=== PATIENT | male | born 1965 | race Caucasian/White ===

== ENCOUNTER → 2016-07-20 | Outpatient (CLI) | payer BC ==
[~2016-07-20] MED LIST: CPR500T PO; FLUD0.1T7 PO; HYDR10TA13 PO; LEVO200T30; LVT.15T PO; ONDA-42 SL; PRM25T PO; SYNTHROID PO; [UNRECOGNIZED DRUG - CODE] PO
== END ==
LOC: LAB 12:05
PROVIDERS: ATTEND Internal Medicine
DX: R19.7 Diarrhea, unspecified (principal)
CPT/HCPCS: 87324; 87449

== ENCOUNTER → 2016-11-17 | Outpatient (CLI) | payer BC ==
[2016-11-17 09:51] LABS: ALANINE AMINOTRANSFERASE 21 U/L (0-55); ALBUMIN 4.1 GM/DL (3.2-4.5); ANION GAP 9 MMOL/L (5-14); ASPARTATE AMINO TRANSFERASE 18 U/L (5-34); BILIRUBIN,TOTAL 0.7 MG/DL (0.1-1.0); BLOOD UREA NITROGEN 14 MG/DL (7-18); BUN/CREATININE RATIO 14; CARBON DIOXIDE 25 MMOL/L (21-32); CHLORIDE 103 MMOL/L (98-107); CHOLESTEROL 202 MG/DL (< 200); CREATININE SERUM 0.98 MG/DL (0.60-1.30); DIRECT LDL 124 MG/DL (1-129); GFR ESTIMATED > 60; GLUCOSE 100 MG/DL (70-105); SODIUM 137 MMOL/L (135-145); TOTAL PROTEIN 6.4 GM/DL (6.4-8.2); TRIGLYCERIDES 129 MG/DL (<150); VLDL CHOLESTEROL 26 MG/DL (5-40)
[2016-11-17 10:12] LABS: THYROID STIMULATING HORMONE 2.74 UIU/ML (0.35-4.94)
== END ==
LOC: LAB 09:09
PROVIDERS: ATTEND Internal Medicine
DX: E27.1 Primary adrenocortical insufficiency (principal); E03.9 Hypothyroidism, unspecified; Z00.8 Encounter for other general examination
CPT/HCPCS: 36415; 80053; 80061; 82024; 84153; 84439; 84443

== ENCOUNTER 2017-05-07 05:33 | Outpatient (CLI) | payer BC ==
[~2017-05-07] VITALS: Ht 182.9 cm; Wt 90.7 kg
[2017-05-07] MEDS ORDERED: HYDR10TA13 PO ×2 (10:01)
[2017-05-07] MEDS ORDERED: LEVO125T6 PO (10:01)
[2017-05-07] MEDS ORDERED: FLDR.1T PO (10:01)
[2017-05-07] MEDS ORDERED: OMEP20CA12 PO (10:01)
== END 2017-05-07 10:02 ==
LOC: PREOP 05:33
PROVIDERS: ATTEND Internal Medicine
DX: Z01.818 Encounter for other preprocedural examination (principal); Z12.11 Encounter for screening for malignant neoplasm of colon; Z86.010 Personal history of colon polyps

== ENCOUNTER 2017-05-14 06:54 | Day surgery (SDC) | payer BC ==
--- NOTE | 2017-05-05 06:13 | HISTORY AND PHYSICAL ---
DATE OF SERVICE: COLONOSCOPY HISTORY AND PHYSICAL HISTORY OF PRESENT ILLNESS: The patient is a 52-year-old white male who presented to my office for new patient examination on 05/03/2017. He reports past history of adenomatous colon polyps and is overdue for colonoscopy. He states that otherwise he feels well. He reports his weight has been stable. He denies abdominal pain. He denies melena or bright red blood per rectum. He is not aware of any family history for colon cancer, but several other first degree relatives have had history of colon polyps. He is a previous patient of Dr. Hensley in [place], but current insurance will not cover him there. 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 He has not required hospitalization for Humberto's symptoms since. He has been taking hydrocortisone rather high dose at 40 mg in the morning. He had not been good about attempting an afternoon dose, so he has been lumping it all in the morning. In addition to this, he takes 0.1 mg of fludrocortisone daily. He has not had an eye examination for glaucoma, etc. in several years. He reports he had bone density study done 4 or 5 years ago, which was normal. He also has a history of Rex's thyroiditis, on thyroid replacement. His other medications include an enteric-coated aspirin daily for colon cancer prevention, a probiotic daily and omeprazole 20 mg daily for reflux symptoms. He apparently had peptic ulcer about 5 years ago as well as erosive esophagitis without evidence for Guerrero's change when he last underwent EGD evaluation. He had a displaced tibiofibular fracture of the left leg. 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 He required a second toe ORIF with bone grafting and a bone stimulator. He still has the implanted bone stimulator and would like to have it removed. PHYSICAL EXAMINATION: GENERAL: Reveals a marinelli white male who denies sun exposure at this time of the year and no tanning bed use. VITAL SIGNS: His blood pressure was 138/70 with a heart rate of 72 and regular. Weight is 201 pounds. He is 5 feet 11-1/2 inches. HEENT: Unremarkable. He has Mallampati class 2 oropharyngeal configuration. NECK: Reveals no JVD, adenopathy or bruits. CHEST: Clear. CARDIOVASCULAR: Reveals regular rate and rhythm without murmur, S3 or S4. ABDOMEN: Soft, supple without mass, organomegaly or tenderness. Bowel sounds are positive. No bruits are noted. EXTREMITIES: Reveal no cyanosis, clubbing or edema. There is some induration at the site of his bone stimulator without overlying ulceration, erythema or tenderness to palpation. Blood studies were reviewed from November in his electronic medical record. His ACTH level at that time was high at a level of 400. The remainder of his chemistry panel, lipid panel and CBC were unremarkable. His total cholesterol was 202 with an LDL of 124, an HDL of 62 and a VLDL of 26. His PSA was 0.24 and TSH was 2.74 with a free T4 of 1.2. Blood sugar was 100 and his chemistry panel was normal. FAMILY HISTORY: Father is living in his 80s with history of pancreatitis. He had late-onset coronary artery bypass grafting in his late 70s or early 80s and required a pacemaker placement. Mother is living in her 80s and has history of Guillain-Norton syndrome. There are several aunts with Rex's thyroiditis. He is not aware of any family history for diabetes. He has one living brother who is 2 years older, alive in good health with no reported health problems. ASSESSMENT AND PLAN: 1. History of colonic adenomas. The patient is being set up for colonoscopy in mid May. Prep instructions of the Suprep kit were given and questions were answered. Rectal exam was deferred at the time of colonoscopy. 2. Pitkin's disease. Strongly advised that he split his cortisone dose, for which we should be able to decrease his total level slowly. We will start off with 25 mg in the morning and 12.5 mg in the afternoon between 2 and 3. We strongly advised to set his phone alarm as a reminder. We will continue his other medications and they were all called in to [facility]. 3. History of erosive esophagitis and peptic ulcer disease, on baby aspirin, more for colon cancer prevention considering his history of polyps. Will need to continue indefinite PPI therapy. He is referred to Dr. Salinas for eye pressure evaluation and general eye evaluation considering his need for steroids/hydrocortisone. We will obtain records from Dr. Hensley reviewing his bone density studies. 4. 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 We will refer to [facility] for removal. We will have him follow up with me for routine evaluation in six months. Job ID: [id number] DocumentID: [id number] Dictated Date: 05/03/2017 19:31:41 Wind Development Director Date: 05/03/2017 20:27:58 Dictated By: TONG CHERY MD
[~2017-05-14] VITALS: Ht 182.9 cm; Wt 90.7 kg
[~2017-05-14 06:54] MED LIST changes: +FLDR.1T PO; +LEVO125T6 PO; +OMEP20CA12 PO
--- OUTSIDE RECORDS SUMMARY | 2017-05-14 06:58 | XMS REPORT | Continuity of Care Document ---
Author Author [facility] Organization [facility] Address Unknown Phone Unavailable Allergies Active Description Code Type Severity Reaction Onset Reported/Identified Relationship to Patient Clinical Status Yes No Known Drug Allergies [id number] Drug Allergy Unknown N/A 08/27/2009 Yes Penicillins [id number] Drug Allergy Unknown N/A 04/27/2015 Yes sulfamethoxazole [id number] Drug Allergy Unknown N/A 04/27/2015 Yes trimethoprim [id number] Drug Allergy Unknown N/A 04/27/2015 Medications There is no data. Problems Date Dx Coded Attending Type Code Diagnosis Diagnosed By 03/01/2014 LAYLA TOBIAS MD Ot V25.09 07/03/2014 DALJIT PARNELL Ot V72.63 07/03/2014 LAYLA TOBIAS MD Ot V25.09 07/03/2014 JORGE MONROE DO Ot 558.9 07/03/2014 JORGE MNOROE DO Ot 789.00 08/11/2016 HANSA CASTILLO MD Ot R19.7 DIARRHEA, UNSPECIFIED 12/05/2016 HANSA CASTILLO MD Ot E03.9 HYPOTHYROIDISM, UNSPECIFIED 12/05/2016 HANSA CASTILLO MD Ot E27.1 PRIMARY ADRENOCORTICAL INSUFFICIENCY 12/05/2016 HANSA CASTILLO MD Ot Z00.8 ENCOUNTER FOR OTHER GENERAL EXAMINATION 05/07/2017 HANSA CASTILLO MD Ot R19.7 DIARRHEA, UNSPECIFIED 05/07/2017 HANSA CASTILLO MD Ot E03.9 HYPOTHYROIDISM, UNSPECIFIED 05/07/2017 HANSA CASTILLO MD Ot E27.1 PRIMARY ADRENOCORTICAL INSUFFICIENCY 05/07/2017 HANSA CASTILLO MD Ot Z00.8 ENCOUNTER FOR OTHER GENERAL EXAMINATION Procedures There is no data. Results Test Result Range [id number] - 07/20/16 11:42 RESULTS NEGATIVE FOR ANTIGEN AND TOXIN A/B [facility] Comprehensive metabolic panel - 11/17/16 09:25 Serum or plasma sodium measurement (moles/volume) 137 mmol/L 135-145 Serum or plasma potassium measurement (moles/volume) 4.0 mmol/L 3.6-5.0 Serum or plasma chloride measurement (moles/volume) 103 mmol/L 98-107 Carbon dioxide 25 mmol/L 21-32 Serum or plasma anion gap determination (moles/volume) 9 mmol/L 5-14 Serum or plasma urea nitrogen measurement (mass/volume) 14 mg/dL 7-18 Serum or plasma creatinine measurement (mass/volume) 0.98 mg/dL 0.60-1.30 Serum or plasma urea nitrogen/creatinine mass ratio 14 NRG Serum or plasma creatinine measurement with calculation of estimated glomerular filtration rate > [facility] Serum or plasma glucose measurement (mass/volume) 100 mg/dL 70-105 Serum or plasma calcium measurement (mass/volume) 9.0 mg/dL 8.5-10.1 Serum or plasma total bilirubin measurement (mass/volume) 0.7 mg/dL 0.1-1.0 Serum or plasma alkaline phosphatase measurement (enzymatic activity/volume) 44 U/L 40-136 Serum or plasma aspartate aminotransferase measurement (enzymatic activity/ volume) 18 U/L 5-34 Serum or plasma alanine aminotransferase measurement (enzymatic activity/volume ) 21 U/L 0-55 Serum or plasma protein measurement (mass/volume) 6.4 g/dL 6.4-8.2 Serum or plasma albumin measurement (mass/volume) 4.1 g/dL 3.2-4.5 Lipid 1996 panel - 11/17/16 09:25 Serum or plasma triglyceride measurement (mass/volume) 129 mg/dL <150 Serum or plasma cholesterol measurement (mass/volume) 202 mg/dL < 200 Serum or plasma cholesterol in HDL measurement (mass/volume) 62 mg/ dL 40-60 Cholesterol in LDL [mass/volume] in serum or plasma by direct assay 124 mg/dL 1-129 Serum or plasma cholesterol in VLDL measurement (mass/volume) 26 mg/ dL 5-40 THYROID STIMULATING HORMONE - 11/17/16 09:25 THYROID STIMULATING HORMONE 2.74 u[iU]/mL 0.35-4.94 Serum or plasma thyroxine (T4) free measurement (mass/volume) - 11/17/16 09:25 Serum or plasma thyroxine (T4) free measurement (mass/volume) 1.20 ng/dL 0.70-1.48 Adrenocorticotropic hormone (ACTH) measurement - 11/17/16 09:25 Adrenocorticotropic hormone (ACTH) measurement 418 pg/mL 5-27 Prostate specific ag [mass/volume] in serum or plasma - 11/17/16 09:25 Prostate specific ag [mass/volume] in serum or plasma 0.24 % 0.00-4.00 Encounters ACCT No. Visit Date/Time Discharge Status Pt. Type Provider Facility Loc./Unit Complaint [id number] 05/07/2017 05:33:00 05/07/2017 10:02:00 DIS Outpatient TONG CHERY MD [facility] PREOP COLONOSCOPY [id number] 11/17/2016 09:09:00 11/17/2016 23:59:59 CLS Outpatient HANSA CASTILLO MD [facility] LAB E27.1,E03.9,V70.0, Z00.8 [id number] 07/20/2016 12:05:00 07/20/2016 23:59:59 CLS Outpatient HANSA CASTILLO MD [facility] LAB DIARRHEA [id number] 04/27/2015 19:57:00 04/27/2015 23:00:00 DIS Emergency MCKENNA DANIEL MD [facility] ER [id number] 07/02/2014 21:48:00 07/03/2014 01:43:00 DIS Emergency JORGE MONROE DO [facility] ER [id number] 02/14/2014 09:09:00 02/14/2014 23:59:59 CLS Outpatient LAYLA TOBIAS MD [facility] LAB [id number] 07/17/2013 16:07:00 07/17/2013 23:59:59 CLS Outpatient DALJIT PARNELL [facility] LAB [id number] 12/15/2012 09:34:00 12/15/2012 23:59:59 CLS Outpatient [id number] 05/14/2017 08:00:00 PEN Preadmit TONG CHERY MD [facility] ENDO SCREENING/HX OF POLYPS
--- OUTSIDE RECORDS SUMMARY | 2017-05-14 06:58 | XMS REPORT | Clinical Summary ---
Author Author [facility] Organization [facility] Address Unknown Phone Unavailable Care Team Providers Care Project Drilling Engineer Name Role Phone Chris Hensley MD PCP Barak Robbins MD Unavailable Araceli Escalante RN Unavailable Unavailable Vani Muniz PA-C Unavailable Isabella Floyd RN Unavailable Unavailable Source Comments Some departments are not documenting in the electronic medical record. If you do not see the information that you expected, contact Release of Information in the Health Information Management department at [phone] for further assistance in locating additional records.[facility] Allergies Active Allergy Reactions Severity Noted Date Comments Sulfamethoxazole-Trimetho SEE COMMENTS 08/10/2013 Pancreatitis prim Penicillins HIVES 08/10/2013 Current Medications Prescription Sig. Disp. Refills Start End Date Status Date hydrocortisone (CORTEF) Take 30 mg by mouth Active 20 mg tablet daily. Takes 1 tab po q am and 0.5 tab po q pm fludrocortisone Take 0.1 mg by mouth Active (FLORINEF) 0.1 mg tablet daily. levothyroxine (SYNTHROID) Take 125 mcg by mouth Active 125 mcg tablet daily. vitamins, multiple cap Take 1 Cap by mouth Active daily. omeprazole DR(+) Take 20 mg by mouth Active (PRILOSEC) 20 mg capsule daily. gabapentin (NEURONTIN) Take 100 mg by mouth Active 100 mg capsule three times daily. 1 CAP. PO TID X 5 DAYS, THEN TAKE 2 CAP PO TID THEREAFTER LORazepam (ATIVAN) 0.5 mg Take 0.5 mg by mouth Active tablet every 8 hours as needed. 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 2013 Social History Tobacco Use Types Packs/Day Years Used Date Never Smoker Smokeless Tobacco: Never Used Alcohol Use Drinks/Week oz/Week Comments Yes 1 Cans of 0.6 beer Sex Assigned at Date Recorded Not on file Last Filed Vital Signs Vital Sign Reading Time Taken Blood Pressure 104/63 07/21/2013 11:00 AM CDT Pulse 87 07/21/2013 11:00 AM CDT Temperature 37.3 C (99.2 F) 07/21/2013 11:00 AM CDT Respiratory Rate - - Oxygen Saturation 97% 07/21/2013 11:00 AM CDT Inhaled Oxygen - - Concentration Weight 87.3 kg (192 lb 7.4 oz) 07/21/2013 11:00 AM CDT Height 182.9 cm (6') 07/21/2013 11:00 AM CDT Body Mass Index 26.1 07/21/2013 11:00 AM CDT Plan of Treatment Health Maintenance Due Date Last Done Comments HEPATITIS C SCREENING 1965 PHYSICAL (COMPREHENSIVE) 01/01/1971 EXAM PERTUSSIS VACCINE 01/01/1975 TETANUS VACCINE 01/01/1981 COLORECTAL CANCER 01/01/2014 SCREENING INFLUENZA VACCINE 11/10/2016 Results Not on filefrom Last 3 Months
[2017-05-14] MEDS ORDERED: 1/2 NS IV SOLUTION 1,000 ML IV STA (07:03)
[2017-05-14] MEDS ORDERED: 1/2 NS IV SOLUTION 1,000 ML IV ONE (07:08)
[2017-05-14 07:15] VITALS: BP 132/84
[2017-05-14] MEDS ORDERED: LIDOCAINE JELLY 2% (XYLOCAINE) 5 ML TUBE MM PRN (07:15)
[2017-05-14] MEDS ORDERED: MIDAZOLAM 2 MG/2 ML (VERSED) VIAL IVP PRN (07:15)
[2017-05-14] MEDS ORDERED: MIDAZOLAM 2 MG/2 ML (VERSED) VIAL ONE ×2 (07:42)
[2017-05-14] MEDS ORDERED: LIDOCAINE JELLY 2% (XYLOCAINE) 5 ML TUBE ONE (07:43)
[2017-05-14] MEDS ORDERED: fentaNYL INJECTION 100 MCG/2 ML AMP ONE (07:43)
--- NOTE | 2017-05-14 07:55 | Pre-Op Note & Conscious Sedat ---
Pre-Operative Progress Note H&P Reviewed The H&P was reviewed, patient examined and no changes noted. Date H&P Reviewed: May 14, 2017 Time H&P Reviewed: 07:45 Conscious Sedation Pre-Proced ASA Class: 2 Airway Mallampati Classification: ([place] appropriate class) I. II. III, IV Lungs Heart ASA score ASA 1: a normal healthy patient ASA 2: a patient with a mild systemic disease (mid diabetes, controlled hypertension, obesity ASA 3: a patient with a severe systemic disease that limits activity (angina , COPD, prior Myocardial infarction) ASA 4: a patient with an incapacitating disease that is a constant threat to life (CHF, renal failure) ASA 5: a moribund patient not expected to survive 24 hrs. (ruptured aneurysm) ASA 6: a declared brain patient whose organs are being harvested. For emergent operations, add the letter E after the classification Grade 2 Sedation Plan: Analgesia, Amnesia, Plan communicated to team members, Discussed options with patient/fam, Discussed risks with patient/fam Note The patient is an appropriate candidate to undergo the planned procedure, sedation, and anesthesia. The patient immediately re-assessed prior to indication. TONG CHERY MD May 14, 2017 07:55
[2017-05-14] MEDS: fentaNYL INJECTION 100 MCG/2 ML AMP IVP PRN ×2 (07:57→08:12)
[2017-05-14 08:50] VITALS: BP 115/79
[2017-05-14 09:05] VITALS: BP 114/88
[2017-05-14 09:08] VITALS: BP 114/88
--- NOTE | 2017-05-14 13:31 | OPERATIVE REPORT ---
DATE OF SERVICE: COLONOSCOPY SUMMARY I am his primary care physician. INDICATION FOR PROCEDURE: Screening colonoscopy, past history of colon polyps. DESCRIPTION OF PROCEDURE: The patient was placed in the left lateral decubitus position. Prior to undergoing colonoscopy, digital rectal evaluation was performed. Anal sphincter tone was normal and the perianal reflex was intact. Prostate is normal in size, anodular and nontender on digital inspection. No abnormalities were noted on digital inspection of anal canal or distal rectal vault. The colonoscope was then inserted into the rectum under direct visualization advanced to the cecum. The cecum was identified by identification of the ileocecal valve and cecal strap. Photographic documentation was obtained. Careful inspection was made as the colonoscope was withdrawn. The quality of prep was good. FINDINGS: There was no evidence for internal or external hemorrhoids. Two diminutive hyperplastic appearing polyps were noted, one in the distal rectum and the other one at the rectosigmoid junction measuring 2 to 3 mm in size. They were biopsied and ablated with no subsequent blood loss. The sigmoid colon, descending colon, splenic flexure, transverse colon, ascending colon, hepatic flexure, ascending colon and cecum were unremarkable. ASSESSMENT: Two diminutive polyps were removed, one from the distal rectum and the other one from the rectosigmoid junction via hot forceps with no subsequent blood loss. This is otherwise normal colonoscopy to the cecum including normal digital evaluation of the prostate. As long as there are no surprises on histopathology report as the patient reports no family history for colon cancer, we will advocate consideration for repeat screening colonoscopy in 10 years. Job ID: [id number] DocumentID: [id number] Dictated Date: 05/14/2017 09:14:19 Applications Support Engineer Date: 05/14/2017 13:31:06 Dictated By: TONG CHERY MD
== END 2017-05-14 09:10 | disposition home or self-care (01) ==
LOC: ENDO 06:54
PROVIDERS: ATTEND Internal Medicine
DX: Z12.11 Encounter for screening for malignant neoplasm of colon (principal); K62.1 Rectal polyp; K63.5 Polyp of colon; D51.0 Vitamin B12 deficiency anemia due to intrinsic factor deficiency; E06.3 Autoimmune thyroiditis; Z79.82 Long term (current) use of aspirin; Z79.899 Other long term (current) drug therapy

== ENCOUNTER → 2017-07-20 | Outpatient (CLI) | payer BC | LOC: LAB 15:40 | PROVIDERS: ATTEND Internal Medicine | DX: R19.7 Diarrhea, unspecified (principal); Z79.2 Long term (current) use of antibiotics | CPT/HCPCS: 87324; 87449 ==

== ENCOUNTER 2019-01-04 05:38 | Outpatient (CLI) | payer BC ==
[~2019-01-04] VITALS: Ht 180.3 cm; Wt 81.8 kg
[~2019-01-04 05:38] MED LIST changes: +HYDR-3641 PO; -OMEP20CA12 PO; +OMEP20CA13 PO
[2019-01-04] MEDS ORDERED: LANS30CA43 PO (10:37)
[2019-01-04] MEDS ORDERED: PSYL660P17 PO (10:37)
[2019-01-04] MEDS ORDERED: L.AC1CAP6 PO (10:42)
[2019-01-04] MEDS ORDERED: ASCO500C17 PO (10:42)
== END 2019-01-04 11:52 | disposition home or self-care (01) ==
LOC: PREOP 05:38
PROVIDERS: ATTEND Internal Medicine
DX: Z01.818 Encounter for other preprocedural examination (principal)

== ENCOUNTER 2019-01-06 07:33 | Day surgery (SDC) | payer BC ==
--- NOTE | 2019-01-03 04:51 | HISTORY AND PHYSICAL ---
DATE OF SERVICE: ESOPHAGOGASTRODUODENOSCOPY HISTORY AND PHYSICAL HISTORY OF PRESENT ILLNESS: The patient is a 54-year-old white male who presented to my office on 01/02/2019 reporting a 2-month history of flareup of his typical ulcer symptoms. He reports epigastric and left upper quadrant pain better after eating temporarily but associated with anorexia. He lost more than 20 pounds of weight since his last office visit in 06/2018. He denied dysphagia, melena or bright red blood per rectum. He has noted more fatigue with decrease in his appetite. He states that he has been under some increased stress, doing a lot of home remodeling, had been drinking more coffee. He denies aspirin, nonsteroidal use or alcohol consumption. He does report a past history of peptic ulcer disease. He underwent EGD evaluation about 6 years ago at which time he reported erosive esophagitis without evidence for Guerrero's and reported a peptic ulcer at that time, although he does not have for stomach or duodenal. He has been taking omeprazole since that time. He was currently taking pantoprazole and omeprazole both in the morning, doing better during the day, but having more evening symptoms. He has some intermittent nausea. 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 He has been on hydrocortisone replacement since and done well. He has had a history of colon polyps in the past, but underwent colonoscopy in 05/2017, had one small adenoma removed with recommendation for 10-year followup as there is no family history for colon cancer. MEDICATIONS ON ADMISSION: Include lansoprazole 30 mg in the morning, omeprazole 20 mg in the morning, L-thyroxine 150 mcg daily, fludrocortisone 0.1 mg daily, hydrocortisone 25 in the morning and 15 around 2:00 p.m. PHYSICAL EXAMINATION: GENERAL: Reveals a marinelli uncomfortable appearing white male, in mild distress. VITAL SIGNS: His weight was down 23.6 pounds from his last office weight 6 months ago. Blood pressure is 114/70 with a heart rate of 72 and regular. HEENT: Sclerae nonicteric. NECK: Revealed no JVD, adenopathy or bruits. CHEST: Clear to auscultation. CARDIOVASCULAR: Reveals a regular rate and rhythm without murmur, S3 or S4. ABDOMEN: Reveals some mild epigastric and left upper quadrant discomfort to palpation without rebound or guarding. No mass or organomegaly are noted. Bowel sounds are positive. No bruits appreciated. EXTREMITIES: Reveal no cyanosis, clubbing or edema. ASSESSMENT AND PLAN: For further evaluation of significant epigastric discomfort with significant weight loss despite proton pump inhibitor therapy, the patient is set up for EGD evaluation on the . It was advised that he take omeprazole in the morning, he has lansoprazole in the evening with p.r.n. Gaviscon for breakthrough symptoms. Further recommendations will be pending EGD evaluation. Job ID: [id number] DocumentID: [id number] Dictated Date: 01/02/2019 11:53:31 Fixture Fabricator Repairer Date: 01/02/2019 12:15:41 Dictated By: TONG CHERY MD [facility]
[2019-01-06] VITALS (16 sets, daily range): BP systolic 104–147; BP diastolic 59–84
[~2019-01-06] VITALS: Ht 180.3 cm; Wt 81.8 kg
[~2019-01-06 07:33] MED LIST changes: +ASCO500C17 PO; +L.AC1CAP6 PO; +LANS30CA43 PO; +PSYL660P17 PO
[2019-01-06] MEDS ORDERED: D5 LR IV SOLUTION 1,000 ML IV ONE ×2 (07:41→09:35)
[2019-01-06] MEDS ORDERED: D5 LR IV SOLUTION 1,000 ML IV STA (07:41)
[2019-01-06] MEDS ORDERED: HURRICAINE EXT TUBE (BENZOCAINE) XX PRN (07:45)
[2019-01-06] MEDS ORDERED: MIDAZOLAM 2 MG/2 ML (VERSED) VIAL IVP ONE (07:45)
[2019-01-06] MEDS ORDERED: LIDOCAINE JELLY 2% 6 ML SYRINGE MM PRN (07:45)
[2019-01-06] MEDS ORDERED: fentaNYL INJECTION 100 MCG/2 ML AMP IVP ONE (07:45)
[2019-01-06] MEDS ORDERED: LIDOCAINE JELLY 2% 6 ML SYRINGE ONE (08:32)
[2019-01-06] MEDS ORDERED: fentaNYL INJECTION 100 MCG/2 ML AMP ONE (08:32)
[2019-01-06] MEDS ORDERED: HURRICAINE EXT TUBE (BENZOCAINE) ONE (08:33)
[2019-01-06] MEDS ORDERED: MIDAZOLAM 2 MG/2 ML (VERSED) VIAL ONE ×2 (08:33)
--- NOTE | 2019-01-06 09:11 | Pre-Op Note & Conscious Sedat ---
Pre-Operative Progress Note H&P Reviewed The H&P was reviewed, patient examined and no changes noted. Date H&P Reviewed: Jan 06, 2019 Time H&P Reviewed: 07:55 Conscious Sedation Pre-Proced ASA Score 2 For ASA 3 and 4: Consider anesthesia and medical clearance. Also, for patients with a history of failed moderate sedation consider anesthesia. Airway Lungs Heart ASA score ASA 1: a normal healthy patient ASA 2: a patient with a mild systemic disease (mid diabetes, controlled hypertension, obesity ASA 3: a patient with a severe systemic disease that limits activity (angina, COPD, prior Myocardial infarction) ASA 4: a patient with an incapacitating disease that is a constant threat to life (CHF, renal failure) ASA 5: a moribund patient not expected to survive 24 hrs. (ruptured aneurysm) ASA 6: a declared brain- patient whose organs are being harvested. For emergent operations, add the letter E after the classification Mallampati Classification Grade 2 Sedation Plan Analgesia, Amnesia, Plan communicated to team members, Discussed options with patient/fam, Discussed risks with patient/fam The patient is an appropriate candidate to undergo the planned procedure, sedation, and anesthesia. The patient immediately re-assessed prior to indication. TONG CHERY MD Jan 06, 2019 09:11
[2019-01-06] MEDS ORDERED: ONDANSETRON 4 MG/2 ML (SDV) Z0FRAN ONE (09:27)
[2019-01-06] MEDS ORDERED: D5 LR IV SOLUTION 1,000 ML IV PRN (09:40)
[2019-01-06] MEDS ORDERED: ONDANSETRON 4 MG/2 ML (SDV) Z0FRAN IVP PRN (09:45)
[2019-01-06 10:41] LABS: ALANINE AMINOTRANSFERASE 14 U/L (0-55); ALBUMIN 3.6 GM/DL (3.2-4.5); ALKALINE PHOSPHATASE 46 U/L (40-136); BILIRUBIN,TOTAL 0.8 MG/DL (0.1-1.0); BUN/CREATININE RATIO 15; CALCIUM 8.3 MG/DL (8.5-10.1); CARBON DIOXIDE 25 MMOL/L (21-32); CHLORIDE 102 MMOL/L (98-107); CREATININE SERUM 0.97 MG/DL (0.60-1.30); GFR ESTIMATED > 60; GLUCOSE 257 MG/DL (70-105); LIPASE 44 U/L (8-78); POTASSIUM 3.8 MMOL/L (3.6-5.0); SODIUM 133 MMOL/L (135-145); TOTAL PROTEIN 5.3 GM/DL (6.4-8.2)
--- NOTE | 2019-01-06 10:50 | NUR ---
CHAINSTITCH ELASTIC ATTACHER HERE. PT TRANSFERRED PER W/C AT TIME FOR TO RADIOLOGY ACCOMPANIED BY RADIOLOGY STAFF. PT DROWSY; NO COMPLAINTS VOICED. STATED ZOFRAN HELPED NAUSEA.
[2019-01-06] MEDS ORDERED: ONDA8TAB13 PO (11:09)
--- NOTE | 2019-01-06 11:41 | NUR ---
1115 Pt returned from radiology per w/c accompanied by agricultural engineering technician. pt a/o x4. iv patent. no complaints voiced. dr. rios to room; pt assessed. new oorders given for discharge to home.
--- NOTE | 2019-01-06 11:57 | Diagnostic Imaging Report ---
PROCEDURE: CT abdomen with contrast only. TECHNIQUE: Multiple contiguous axial images were obtained through the abdomen after the administration of intravenous contrast. Auto Exposure Controls were utilized during the CT exam to meet ALARA standards for radiation dose reduction. INDICATION: Epigastric pain and nausea. COMPARISON: Correlation is made with prior CT abdomen and pelvis study from 03/28/2012. FINDINGS: The lung bases are clear. The liver demonstrates some mild generalized low density consistent with hepatic steatosis. No discrete liver mass is identified. No biliary ductal dilatation is seen. There is questionable small hyperdensities in the dependent portion of the gallbladder which may represent small stones. The pancreas demonstrates homogeneous enhancement to the parenchyma. No peripancreatic inflammatory stranding is seen. There is no peripancreatic fluid or fluid collection identified. The spleen is unremarkable. No adrenal mass is seen. Kidneys show normal homogeneous enhancement. Aorta is nonaneurysmal. Previously noted small left periaortic nodular density at the level of the SMA appears stable at approximately 11 mm. Remainder of the central retroperitoneum is unremarkable. Bowel loops are normal in caliber. There is moderate stool in the colon. Appendix is visualized in the right lower quadrant and unremarkable. There is no free fluid identified. IMPRESSION: 1. Hepatic steatosis. 2. Questionable cholelithiasis. Gallbladder ultrasound may be useful for further evaluation. 3. Stable left para-aortic lymph node since exam dating back to 2011. 4. No acute feature identified. Dictated by: Dictated on workstation # [id number]
--- NOTE | 2019-01-06 15:05 | OPERATIVE REPORT ---
DATE OF SERVICE: 01/06/2019 EGD SUMMARY EGD is performed for evaluation of epigastric pain, weight loss and nausea. The patient was placed in the left lateral decubitus position. The endoscope was inserted in the oral cavity and under direct visualization, the esophagus was intubated. The endoscope was passed down the esophagus, stomach and second portion of the duodenum. Careful inspection was made as the endoscope was withdrawn. The patient tolerated the procedure well, but had nausea post-procedure with stable vital signs and was given Zofran with improvement at this point. FINDINGS: The proximal, mid and distal esophagus were unremarkable. There was no evidence for esophagitis, hiatal hernia, rings, webs, or strictures. There was some mild antral erythema present and a biopsy was obtained for histopathology and Helicobacter evaluation. Otherwise, the cardia, fundus and antrum of the stomach were unremarkable. The pylorus and pyloric channel were unremarkable. Present in the posterior duodenal bulb were three small erosions, measuring roughly 2 mm in size. Photograph was obtained. There was no evidence for bleeding. The second portion of the duodenum was unremarkable. There was no evidence for obstruction. The ampulla of Vater was unremarkable on gross inspection. ASSESSMENT AND PLAN: The patient did have three distal duodenal bulb erosions as noted above with no evidence for esophagitis. I do not believe that these findings explain his symptomatology. We will be obtaining a repeat CMP and a lipase level as in discussing with the patient and review of his electronic medical record, he did have a bout of pancreatitis in 2011, at which time, he had no pancreatic or gallstone abnormalities on CT ABD. He also had an abdominal sonogram with no gallbladder pathology being noted. He did have a paraaortic node subcentimeter in size and lipase level of 500. He had had several subsequent lipases done that were normal, last in 2016. There is also a family history of pancreatitis in his father, who has had several bouts later in life. We will likely proceed with a CT abdomen later today as well. Job ID: [id number] DocumentID: [id number] Dictated Date: 01/06/2019 09:55:30 Director Of Market Intelligence Date: 01/06/2019 15:04:48 Dictated By: TONG CHERY MD [facility]
--- NOTE | 2019-01-07 18:03 | OPERATIVE REPORT ---
DATE OF SERVICE: 01/06/2019 ADDENDUM Following the procedure, the patient was still having significant epigastric discomfort. He had one episode of emesis. He was given Zofran with some improvement in his symptoms. He had mild pain to palpation without rebound or guarding in the epigastrium and less so on the left and right upper quadrants of the abdomen, which is soft and bowel sounds are positive. He also reported coccyx pain and swelling compatible with a recurrent pilonidal cyst, which has required antibiotic therapy in the past. On evaluation, there was erythema, redness and induration without any evidence for draining sinus tracts over the distal coccyx area. No perianal abnormalities or discomfort were noted. I discussed the fact that his endoscopic findings did not suggest significant reflux and suspected other abdominal pathology. Electronic medical record was reviewed and the patient did have an episode of pancreatitis in 2011 with a lipase level of 500 as noted above with no significant CT findings. He had several other episodes of abdominal pain with normal lipases with ER visits last in 2016. I discussed his case with radiologist, discussing concerns of pancreatitis and whether or not CT or MRCP. He advised starting with CT scan. This was performed and revealed what appeared to be couple of small gallstones in the dependent portion of the gallbladder without any CT findings to suggest acute cholecystitis or pancreatitis. He had stable periaortic node unchanged from 2012 less than a centimeter in size. We did send out Levaquin for a likely infected pilonidal cyst and discussed setting him up for an abdominal sonogram and surgical consultation as I suspect he may be dealing with cholecystitis. He was told if his symptoms flared significantly over the weekend to go to the emergency room for more expedited workup. By the time of his discharge, he was tolerating liquids without nausea or vomiting. Little over 30 minutes additional time was spent in addition to calling the patient back and discussing CT findings and further workup with a discussion with radiology. Job ID: [id number] DocumentID: [id number] Dictated Date: 01/07/2019 11:27:02 Direct Care Supervisor Date: 01/07/2019 15:48:39 Dictated By: TONG CHERY MD
[2019-01-11] MEDS ORDERED: TRAM-42 PO (11:28)
== END 2019-01-06 11:50 | disposition home or self-care (01) ==
LOC: ENDO 07:33
PROVIDERS: ATTEND Internal Medicine
DX: K31.89 Other diseases of stomach and duodenum (principal); R63.4 Abnormal weight loss; R11.0 Nausea; Z88.0 Allergy status to penicillin; Z88.2 Allergy status to sulfonamides; Z88.1 Allergy status to other antibiotic agents; Z79.899 Other long term (current) drug therapy; Z87.11 Personal history of peptic ulcer disease; Z86.010 Personal history of colon polyps; Z83.79 Family history of other diseases of the digestive system
CPT/HCPCS: 36415; 74160; 80053; 83690; 88305

== ENCOUNTER 2019-01-10 14:31 | Outpatient (CLI) | payer BC ==
[~2019-01-10] VITALS: Ht 180.3 cm; Wt 81.8 kg
[~2019-01-10 14:31] MED LIST changes: -LEVO500T2 PO; -TRAM-42 PO
[2019-01-11] MEDS ORDERED: LEVO500T2 PO (09:22)
[2019-01-11] MEDS ORDERED: TRAM-42 PO (11:28)
== END 2019-01-10 15:19 | disposition home or self-care (01) ==
LOC: PREOP 14:31
PROVIDERS: ATTEND Surgery
DX: Z01.818 Encounter for other preprocedural examination (principal)

== ENCOUNTER → 2019-01-10 | Outpatient (CLI) | payer BC ==
[~2019-01-10] MED LIST changes: +LEVO500T2 PO; +ONDA8TAB13 PO; +TRAM-42 PO
--- NOTE | 2019-01-10 09:13 | Diagnostic Imaging Report ---
PROCEDURE: US Gallbladder. TECHNIQUE: Multiple real-time grayscale images were obtained over the right upper quadrant in various projections. INDICATION: Epigastric pain. COMPARISON: None. FINDINGS: The size and echogenicity liver is normal. Portal venous flow is unremarkable. There is no mass or intra-hepatic biliary duct dilatation. The common bile duct is nonvisualized due to overlying bowel gas. There are a multiple gallstones present. The gallbladder wall and lumen are otherwise normal. There is no inflammation to suggest cholecystitis. The visualized pancreas, right kidney, IVC and aorta are normal. No ascites. IMPRESSION: Cholelithiasis without cholecystitis. Dictated by: Dictated on workstation # [id number]
== END ==
LOC: RAD 08:13
PROVIDERS: ATTEND Internal Medicine
DX: K80.20 Calculus of gallbladder without cholecystitis without obstruction (principal); R11.2 Nausea with vomiting, unspecified
CPT/HCPCS: 76705

== ENCOUNTER 2019-01-11 08:33 | Day surgery (SDC) | payer BC ==
[2019-01-11] VITALS (14 sets, daily range): BP systolic 124–148; BP diastolic 71–92
[~2019-01-11] VITALS: Ht 180 cm; Wt 81.8 kg
[2019-01-11] MEDS: LACTATED RINGERS 1,000 ML IV PRN ×2 (09:03→10:50)
[2019-01-11] MEDS ORDERED: CLINDAMYCIN 600 MG/50 ML IVPB 50 ML IV ONE (09:15)
[2019-01-11] MEDS ORDERED: LEVO500T2 PO (09:22)
[2019-01-11] MEDS ORDERED: SCOPOLAMINE 1.5 MG (TRANSDERM-SCOP) PATCH ONE (09:27)
[2019-01-11] MEDS ORDERED: ONDANSETRON 4 MG/2 ML (SDV) Z0FRAN ONE (09:27)
[2019-01-11] MEDS ORDERED: FAMOTIDINE 20MG/2ML IV (PEPCID) ONE (09:28)
[2019-01-11] MEDS ORDERED: BUP/EPI 0.25% 1:200,000 (MARCAINE) 10 ML VIAL IJ ONE (09:31)
[2019-01-11] MEDS ORDERED: IOPAMIDOL 61% 30 ML (ISOVUE 300) VIAL IV ONE (09:31)
[2019-01-11] MEDS ORDERED: HYDROCORTISONE 100 MG/2 ML (Solu-CORTEF) VIAL ONE ×2 (09:37→12:02)
[2019-01-11] MEDS ORDERED: MIDAZOLAM 2 MG/2 ML (VERSED) VIAL ONE (09:42)
[2019-01-11] MEDS ORDERED: ROCURONIUM 10 MG/ML 5 ML SYRINGE IV ONE (09:42)
[2019-01-11] MEDS ORDERED: fentaNYL INJECTION 100 MCG/2 ML AMP ONE (09:42)
[2019-01-11] MEDS ORDERED: LIDOCAINE PF 2% 5 ML (XYLOCAINE) VIAL ONE (09:42)
[2019-01-11] MEDS ORDERED: proPOfol 200 MG/20 ML (DIPRIVAN) VIAL IV ONE (09:42)
[2019-01-11] MEDS ORDERED: SEVOFLURANE (ULTANE) 15 ML INHAL SOLN ONE ×3 (09:42→11:40)
[2019-01-11] MEDS ORDERED: FAMOTIDINE 20MG/2ML IV (PEPCID) IV ONE (09:45)
[2019-01-11] MEDS ORDERED: ONDANSETRON 4 MG/2 ML (SDV) Z0FRAN IV ONE (09:45)
[2019-01-11] MEDS ORDERED: ONDANSETRON 4 MG/2 ML (SDV) Z0FRAN IVP PRN (10:45)
[2019-01-11] MEDS ORDERED: morphine INJ 10 MG/ML 1ML (SYR OR VIAL) IVP ONE (10:45)
[2019-01-11] MEDS ORDERED: MEPERIDINE (DEMEROL) INJ 50 MG/ML IVP ONE (10:45)
[2019-01-11] MEDS ORDERED: fentaNYL INJECTION 100 MCG/2 ML AMP IVP ONE (10:45)
[2019-01-11] MEDS ORDERED: NEOSTIGMINE 3 MG/3 ML VIAL ONE (11:02)
[2019-01-11] MEDS ORDERED: GLYCOPYRROLATE 0.2 MG/ML (ROBINUL) 2 ML VIAL ONE (11:02)
--- NOTE | 2019-01-11 11:26 | Progress Note-Post Operative ---
Post-Operative Progess Note Surgeon (s)/Traffic Sergeant (s) Surgeon MANISH STRICKLAND DO Traffic Sergeant: Lela Pre-Operative Diagnosis gallstone Post-Operative Diagnosis Cholelithiasis/Cholecystitis Procedure & Operative Findings Date of Procedure 01/11/19 Procedure Performed/Findings Lap jeanette with IOC Anesthesia Type GET Estimated Blood Loss Estimated blood loss (mL): scant Specimens/Packing Specimens Removed GB and contents MANISH STRICKLAND DO Jan 11, 2019 11:26
[2019-01-11] MEDS ORDERED: TRAM-42 PO (11:28)
--- NOTE | 2019-01-11 11:29 | Diagnostic Imaging Report ---
INDICATION: Laparoscopic cholecystectomy. Intraoperative cholangiogram. COMPARISON: Gallbladder sonogram dated 01/10/2019. Total fluoroscopy time: 10 seconds Total number of fluoroscopic images saved: 53 FINDINGS: Multiple intraoperative image intensifier views of the right upper abdominal quadrant were obtained during intraoperative cholangiogram. Images provided show contrast filling the intra and extra hepatic biliary ductal system. There is no abnormal extravasation of contrast. No intraluminal filling defects are seen. Contrast empties into the small bowel, as expected. IMPRESSION: 1. Fluoroscopic guidance provided during intraoperative cholangiogram. Dictated by: Dictated on workstation # [id number]
--- NOTE | 2019-01-11 11:29 | Discharge Inst-Surgical ---
Discharge Inst-Surgical Reconcile Patient Problems Problems Reviewed?: Yes Depart Medication/Instructions New, Converted or Re-Newed RX: RX Given to Pt/Family Patient Instructions Follow up Appt: Make appointment for 1 week. [phone] Instructions: No lifting greater than 20 pounds. No strenuous activity. May shower in 24 hours, no tub bath or soaking. Use incentive spirometer at home as directed. No Smoking Skin/Wound Care: May remove bandages in am. You need to leave the Dermabond on incision it will fall off on it's own. Symptoms to Report: Appetite Changes, Extremity Discoloration, Numbness/Tingling, Swelling Increased, Bleeding Excessive, Eyesight Changes, Pain Increased, Urine Color Change, Constipation(Persistent), Fever over 101 degree F, Pain/Pressure in chest, Urinating Difficulty, Cough Up/Vomit Blood, Heart Beat Irreg/Pounding, Pain/Pressure in jaw, Cramps in feet or legs, Lightheadedness, Pain/Pressure in shoulder, Diarrhea(Persistent), Memory Changes Suddenly, Questions/Concerns, Weight gain consecutive days, Dizziness/Fainting, Nausea/Vomiting, Shortness of Breath, Weight gain over 2 pounds If questions or concerns contact your physician Or seek help at emergency department. Activity Activity as Tolerated: Yes Activity Instructions: Avoid Stress to Incision Driving Instructions: No Driving/Refer to Diet Discharge Diet: Avoid Fatty Foods, Low Fat/Low Cholesterol Diet After 24 Hours: Clear Liquid if Nauseous If Any Problems/Questions/Issu: Contact Your Physician, Go to Emergency Room Skin/Wound Care Infection Signs and Symptoms: Increased Redness, Foul Odor of Wound, Increased Drainage, Skin Itchy or Has a Rash, Increased Swelling, Temperature Above 101 F Wound Care Comment: heating pad to shoulder or neck for pain tonight Bathing Instructions: Shower Stitches/Trina/Dermabond Dis: Dermabond Ice Pack: Ice On and Off Site ( as needed for pain at incisions) MANISH STRICKLAND DO Jan 11, 2019 11:29
[2019-01-11] MEDS ORDERED: PROMETHAZINE INJ 25 MG/ML (PHENERGAN) AMP ONE (12:13)
[2019-01-11] MEDS ORDERED: PROMETHAZINE INJ 25 MG/ML (PHENERGAN) AMP IVP ONE (12:30)
--- NOTE | 2019-01-11 15:38 | OPERATIVE REPORT ---
DATE OF SERVICE: PREOPERATIVE DIAGNOSES: Cholelithiasis and cholecystitis. POSTOPERATIVE DIAGNOSES: Cholelithiasis and cholecystitis. PROCEDURES PERFORMED: Laparoscopic cholecystectomy and intraoperative cholangiogram. SURGEON: Evan Lozano DO. MACHINE SETTER SHEET METAL: Juvenal Vogel DO. ANESTHESIA: General endotracheal tube. SPECIMEN: Gallbladder and contents. BLOOD LOSS: Scant. FLUIDS: Per anesthesia. POSTOPERATIVE CONDITION: Stable. INDICATION FOR PROCEDURE: The patient is a 54-year-old male, who has been having some right-sided abdominal pain and some malaise. He also had pain with fatty foods and had ultrasound, which showed stones and a he has had a little bit of weight loss and needed the gallbladder removed. FINDINGS: The patient had adhesions to the gallbladder; it is usually indicative of previous gallbladder attacks. PROCEDURE NOTE: After informed consent was obtained, the patient was brought to the operating room, placed on the table in supine position, sterilely prepped and draped in a normal fashion. Local lidocaine was used to infiltrate the skin above the umbilicus. I made the incision with #11 blade, carried down through the skin into the subcutaneous tissue, deepened down to subcutaneous tissue with Bovie electrocautery down to the fascia. Fascia was incised with Bovie electrocautery and bluntly entered the abdomen, swept a finger around, placed 0 Vicryl [id number] suture and placed a limited trocar port under direct visualization. Created pneumoperitoneum and then placed 3 more ports in a normal fashion using local lidocaine, 11 blade for stab incision and VersaStep system, all done under direct visualization, one in the subxiphoid and two in the right upper quadrant. The patient then placed slightly in reverse Trendelenburg and rotated to left, able to visualize the gallbladder, grasped at the fundus and then noted a lot of adhesions of omentum as well as small intestine stuck to the gallbladder, carefully took these down with blunt dissection as well as Bovie electrocautery. Once we were able to get these freed up, we were then able to grasp down the Caron's pouch and pulled in inferolateral direction, started dissecting out cystic duct and cystic artery, able to get around the cystic duct and cystic artery and placed one clip distally on the cystic duct and one distally and one proximal in the cystic artery. Cut the cystic duct usp through the Metzenbaum scissors. Placed a cholangiogram catheter, shot a cholangiogram. Good spillage of dye down the common bile duct into the small intestine as well as up into the common hepatic and right and left hepatics could also see the cystic duct. At this point, then removed the cholangiogram catheter, placed 2 clips proximally on the cystic duct and cut the cystic duct and cystic artery with Metzenbaum scissors, started dissecting the gallbladder from the bed of the liver with L-hook cautery and encountered a posterior branch of the cystic artery and clipped this. Continued taking the gallbladder from the bed of the liver. Once it was completely removed, placed a bag in the abdomen, then placed the gallbladder in the bag and then removed through the supraumbilical incision. Placed the port back in the abdomen, copiously irrigated it with normal saline and obtained hemostasis in the bed of liver with L-hook cautery. Looked around, there were some adhesions down in the left upper quadrant, took a picture of the left lower quadrant. At this point, suctioned out all the fluid. Placed the patient supine, removed all ports under direct visualization, allowed pneumoperitoneum as well as suctioned it out. I then closed the supraumbilical incision, closing the fascia with 0 Vicryl suture. Copiously irrigated with normal saline, closing the 3 small 5 mm incisions with single interrupted 4-0 undyed Monocryl subcuticular stitch, closed supraumbilical incision with 3 interrupted 4-0 undyed Monocryl subcuticular stitches. Area was cleaned and dried. Dermabond placed. The patient tolerated the procedure. Sponge, instrument and needle count correct at the end of the case. Dr. Vogel assisted in this case helping to make incisions, close incisions, identify anatomy and hold the anatomy out of the way. Job ID: [id number] DocumentID: [id number] Dictated Date: 01/11/2019 11:24:53 Healthcare Financial Analyst Date: 01/11/2019 15:37:32 Dictated By: DO RUDDY VO
== END 2019-01-11 14:45 | disposition home or self-care (01) ==
LOC: SDC 08:33
PROVIDERS: ATTEND Surgery
DX: K80.10 Calculus of gallbladder with chronic cholecystitis without obstruction (principal); K21.9 Gastro-esophageal reflux disease without esophagitis; Z88.0 Allergy status to penicillin; Z88.1 Allergy status to other antibiotic agents; Z88.2 Allergy status to sulfonamides; Z79.899 Other long term (current) drug therapy; Z82.49 Family history of ischemic heart disease and other diseases of the circulatory system
CPT/HCPCS: 87081; 88304

== ENCOUNTER 2019-10-19 08:28 | Emergency (ER) | payer BC ==
[~2019-10-19] VITALS: Ht 177 cm; Wt 74.0 kg
[~2019-10-19 08:28] MED LIST changes: -HYDR-3641 PO; +HYDR-4164 PO; +LEVO500T2 PO; -OMEP20CA13 PO; +OMEP20CA18 PO; +TRAM-42 PO
--- OUTSIDE RECORDS SUMMARY | 2019-10-19 08:34 | XMS REPORT | Continuity of Care Document ---
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 Takes 1 tab po q am and 0.5 tab po q pm Oral Active [facility], fludrocortisone (FLORINEF) 0.1 mg tablet Take 0.1 mg by mouth daily. Oral Active [facility] , levothyroxine (SYNTHROID) 125 mcg tablet Take 125 mcg by mouth daily. Oral Active [facility] , vitamins, multiple cap Take 1 Cap by mouth daily. Oral Active [facility], omeprazole DR(+) (PRILOSEC) 20 mg capsule Take 20 mg by mouth daily. Oral Active [facility] , gabapentin (NEURONTIN) 100 mg capsule Take 100 mg by mouth three times daily. 1 CAP. PO TID X 5 DAYS, THEN TAKE 2 CAP PO TID THEREAFTER Oral Active [facility] , LORazepam (ATIVAN) 0.5 mg tablet Take 0.5 mg by mouth every 8 hours as needed. Oral Active [facility], Allergies, Adverse Reactions, Alerts Substance Category Reaction Severity Reaction type Status Date Reported Comments Source SULFAMETHOXAZOLE-TRIMETHOPRIM SEE COMMENTS Propensity to adverse reactions Active 08/10/2013 [facility], PENICILLINS HIVES Propensity to adverse reacti ons Active 08/10/2013 [facility] , Immunizations Immunization Date Given Site Status Last Updated Comments Source Evaluated Forecast 10/19/2019 completed table.evaluated-forecast { border-collapse: collapse; font-family: Urie, Helvetica, sans-serif; } .evaluated-forecast th, .evaluated-forecast td { paddinpx 8px; } .evaluated-forecast thead th { background: #[id number]; text-transform: lowercase; text-align: left; font-size: 15px; color: #fff; } .evaluated-forecast tr { border: 1px solid #[id number]; } .evaluated- forecast tbody tr { border-bottom: 1px solid #[id number]; } .evaluated- forecast tbody tr:nth-child(odd) { background: #[id number]; } .e valuated-forecast tbody th, .evaluated-forecast tbody tr td { border- right: 1px solid #[id number]; } .evaluated-forecast tfoot th { background: #[id number]; text-align: left; font-weight: normal; font-size: 10px; color: #fff; } .evaluated-forecast tr *:nth- child(3), .evaluated-forecast tr *:nth-child(4) { text-align: right; } MMR 01/01/1965 VERNA (Varivax) 01/01/1965 Tdap 01/01/1971 Zoster Subunit (Shingrix) 01/01/2014 Influenza IIV4 MDV 10/11/2019 PPSV23 (Pneumovax 23) 01/01/2029 Polio, UF AG29162-3^Too Old^LN Hib, UF HS93164-3^Too Old^LN Hep B, UF EO52142-6^Too Old^LN Hep A, UF LE28956-1^Too Old^LN Rotavirus, UF PZ08109-7^Too Old^LN Meningococcal, UF ME10209-5^Too Old^LN HPV, UF BC53746-0^Too Old^LN QF4685, Influenza IIV3 PFree 05/03/2017 Right Posterolateral fat of Upper Arm Not Given IH3179, Results No Data Provided for This Section Pathology Reports No Data Provided for This Section Diagnostic Reports No Data Provided for This Section Consultation Notes No Data Provided for This Section Discharge Summaries No Data Provided for This Section History and Physicals No Data Provided for This Section Vital Signs Vital Sign Value Date Comments Source Systolic blood pressure 104 mm [Hg] 07/21/2013 [facility], Diastolic blood pressure 63 mm [Hg] 07/21/2013 [facility], Heart rate 87 /min 07/21/2013 [facility], Body temperature 37.33 Steffanie 07/21/2013 [facility], Body height 182.9 cm 07/21/2013 [facility], Body weight 87.3 kg 07/21/2013 [facility], BMI 26.10 kg/m2 07/21/2013 [facility], Oxygen saturation in Arterial blood by Pulse oximetry 97 % 07/21/2013 [facility] , Encounters Location Location Details Encounter Type Encounter Number Reason For Visit Attending Provider ADM Date DC Date Status Source PAT OUTPATI ENT [id number] E CHATO 07/21/2013 07/22/2013 Active [id number] Discharged [facility], CAT O ERMIAS KULKARNI 06/27/2018 Active [facility], CAT OUTPATI ENT [id number] [facility] 06/27/2018 06/28/2018 Active [facility], Procedures No Data Provided for This Section Plan of Care Plan of Care Date Source Health MaintenanceDue DateLast DoneComme ntsHIV NXCWCQZJJ80/22/1979DTAP/TDAP VACCINES (1 - Tdap)01/01/1982HEPATITIS C EGEKPRNGX30/22/1982PHYSICAL (COMPREHENSIVE) EXAM01/01/1982COLORECTAL CANCER RERXDZALD74/22/2014SHINGLES RECOMBINANT VACCINE (1 of 2)01/01/2014INFLUENZA XNXZLKL8701/11/2020 10/19/2019 [facility], Social History No Data Provided for This Section Assessment and Plan No Data Provided for This Section Family History No Data Provided for This Section Advance Directives Order Name Results Value Date Source Advance Directives Advance Dir ectives Documents on FileTypeDate RecordedPatien t RepresentativeExplanationAdvance Directive/DPOA12/20/2012 12:30 PM 10/19/2019 [facility] , Functional Status No Data Provided for This Section
--- OUTSIDE RECORDS SUMMARY | 2019-10-19 08:35 | XMS REPORT | Continuity of Care Document ---
Author Organization Unknown Address Unknown Phone Unavailable Allergies Active Description Code Type Severity Reaction Onset Reported/Identified Relationship to Patient Clinical Status Yes No Known Drug Allergies [id number] Drug Allergy Unknown N/A 08/27/2009 Yes Penicillins [id number] Drug Aller gy Unknown N/A 04/27/2015 Yes sulfamethoxazole [id number] Drug Allergy Unknown N/A 04/27/2015 Yes trimethoprim [id number] Drug Allergy Unknown N/A 04/27/2015 Yes sulfamethoxazole [id number] Drug Allergy Severe N/A 01/06/2019 Yes trimethoprim [id number] Drug Allergy Severe N/A 01/06/2019 Yes Penicillins [id number] Drug Aller gy Mild HIVES 01/06/2019 Medications There is no data. Problems Date Dx Coded Attending Type Code Diagnosis Diagnosed By 03/01/2014 LAYLA TOBIAS MD Ot V25.09 07/03/2014 DALJIT PARNELL Ot V72. 63 07/03/2014 LAYLA TOBIAS MD Ot V25.09 07/03/2014 JORGE MONROE DO Ot 558.9 07/03/2014 JORGE MONROE DO Ot 789.00 08/11/2016 HANSA CASTILLO MD [...] MD Ot E27.1 PRIMARY ADRENOCORTICAL INSUFFICIENCY 05/07/2017 BETTASSO MD, HANSA F Ot Z00.8 ENCOUNTER FOR OTHER GENERAL EXAMINATION 05/07/2017 MIRI POMPA, TONG Mix Ot Z01.818 ENCOUNTER FOR OTHER PREPROCEDURAL EXAMIN 05/07/2017 TONG CHERY MD Ot Z12. 11 ENCOUNTER FOR SCREENING FOR MALIGNANT NE 05/07/2017 TONG CHERY MD Ot Z86.010 PERSONAL HISTORY OF COLONIC POLYPS 05/10/2017 TONG CHERY MD Ot Z01.818 ENCOUNTER FOR OTHER PREPROCEDURAL EXAMIN 05/10/2017 TONG CHERY MD Ot Z12. 11 ENCOUNTER FOR SCREENING FOR MALIGNANT NE 05/10/2017 TONG CHERY MD Ot Z86.010 PERSONAL HISTORY OF COLONIC POLYPS 05/13/2017 TONG CHERY MD Ot Z01.818 ENCOUNTER FOR OTHER PREPROCEDURAL EXAMIN 05/13/2017 TONG CHERY MD Ot Z12. 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 3 AUTOIMMUNE THYROIDITIS 05/14/2017 TONG CHERY MD Ot K62. 1 RECTAL POLYP 05/14/2017 TONG CHERY MD Ot K63. 5 POLYP OF COLON 05/14/2017 TONG CHERY MD Ot Z12. 11 ENCOUNTER FOR SCREENING FOR MALIGNANT NE 05/14/2017 TONG CHERY MD Ot Z79. 82 PRISON (CURRENT) USE OF ASPIRIN 05/14/2017 TONG CHERY MD Ot Z79.899 OTHER PRISON (CURRENT) DRUG THERAPY 05/17/2017 TONG CHERY MD Ot D51. 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 3 AUTOIMMUNE THYROIDITIS 05/17/2017 TONG CHERY MD Ot K62. 1 RECTAL POLYP 05/17/2017 TONG CHERY MD Ot K63. 5 POLYP OF COLON 05/17/2017 TONG CHERY MD Ot Z12. 11 ENCOUNTER FOR SCREENING FOR MALIGNANT NE 05/17/2017 TONG CHERY MD Ot Z79. 82 BRICK STACKER (CURRENT) USE OF ASPIRIN 05/17/2017 TONG CHERY MD Ot Z79.899 OTHER BRICK [employer]ER (CURRENT) DRUG THERAPY 07/21/2017 TONG CHERY MD Ot R19. 7 DIARRHEA, UNSPECIFIED 07/21/2017 TONG CHERY MD Ot Z79. 2 BRICK STACKER (CURRENT) USE OF ANTIBIOTICS 08/04/2017 TONG CHERY MD Ot R19. 7 DIARRHEA, UNSPECIFIED 08/04/2017 TONG CHERY MD Ot Z79. 2 PRISON (CURRENT) USE OF ANTIBIOTICS 09/09/2017 HANSA CASTILLO MD Ot R19.7 DIARRHEA, UNSPECIFIED 09/09/2017 HANSA CASTILLO MD Ot E03.9 HYPOTHYROIDISM, UNSPECIFIED 09/09/2017 HANSA CASTILLO MD Ot E27.1 PRIMARY ADRENOCORTICAL INSUFFICIENCY 09/09/2017 HANSA CASTILLO MD F Ot Z00.8 ENCOUNTER FOR OTHER GENERAL EXAMINATION 09/09/2017 TONG CHERY MD Ot R19. 7 DIARRHEA, UNSPECIFIED 09/09/2017 TONG CHERY MD Ot Z79. 2 BRICK STACKER (CURRENT) USE OF ANTIBIOTICS 09/23/2017 TONG CHERY MD Ot R19. 7 DIARRHEA, UNSPECIFIED 09/23/2017 TONG CHERY MD Ot Z79. 2 BRICK STACKER (CURRENT) USE OF ANTIBIOTICS 01/04/2019 TONG CHERY MD Ot Z01.818 ENCOUNTER FOR OTHER PREPROCEDURAL EXAMIN 01/05/2019 TONG CHERY MD Ot Z01.818 ENCOUNTER FOR OTHER PREPROCEDURAL EXAMIN 01/06/2019 TONG CHERY MD Ot K31. 89 OTHER DISEASES OF STOMACH AND DUODENUM 01/06/2019 TONG CHERY MD Ot R11. 0 NAUSEA 01/06/2019 TONG CHERY MD Ot R63. 4 ABNORMAL WEIGHT LOSS 01/06/2019 TONG CHERY MD Ot Z79.899 OTHER BRICK STACKER (CURRENT) DRUG THERAPY 01/06/2019 TONG CHERY MD Ot Z83. 79 FAMILY HISTORY OF OTHER DISEASES OF THE 01/06/2019 TONG CHERY MD Ot Z86.010 PERSONAL HISTORY OF COLONIC POLYPS 01/06/2019 TONG CHERY MD Ot Z87. 11 PERSONAL HISTORY OF PEPTIC ULCER DISEASE 01/06/2019 TONG CHERY MD Ot Z88. 0 ALLERGY STATUS TO PENICILLIN 01/06/2019 OTNG CHERY MD Ot Z88. 1 ALLERGY STATUS TO OTHER ANTIBIOTIC AGENT 01/06/2019 TONG CHERY MD Ot Z88. 2 ALLERGY STATUS TO SULFONAMIDES STATUS 01/10/2019 MANISH STRICKLAND DO Ot Z01.8 18 ENCOUNTER FOR OTHER PREPROCEDURAL EXAMIN 01/12/2019 TONG CHERY MD Ot K80. 20 CALCULUS OF GALLBLADDER W/O CHOLECYSTITI 01/12/2019 TONG CHERY MD Ot R11. 2 NAUSEA WITH VOMITING, UNSPECIFIED 01/16/2019 TONG CHERY MD Ot K80. 20 CALCULUS OF GALLBLADDER W/O CHOLECYSTITI 01/16/2019 TONG CHERY MD Ot R11. 2 NAUSEA WITH VOMITING, UNSPECIFIED 01/18/2019 TONG CHERY MD Ot K31. 89 OTHER DISEASES OF STOMACH AND DUODENUM 01/18/2019 TONG CHERY MD Ot R11. 0 NAUSEA 01/18/2019 TONG CHERY MD Ot R63. 4 ABNORMAL WEIGHT LOSS 01/18/2019 TONG CHERY MD Ot Z79.899 OTHER BRICK STACKER (CURRENT) DRUG THERAPY 01/18/2019 TONG CHERY MD Ot Z83. 79 FAMILY HISTORY OF OTHER DISEASES OF THE 01/18/2019 TONG CHERY MD Ot Z86.010 PERSONAL HISTORY OF COLONIC POLYPS 01/18/2019 TONG CHERY MD Ot Z87. 11 PERSONAL HISTORY OF PEPTIC ULCER DISEASE 01/18/2019 TONG CHERY MD Ot Z88. 0 ALLERGY STATUS TO PENICILLIN 01/18/2019 TONG CHERY MD Ot Z88. 1 ALLERGY STATUS TO OTHER ANTIBIOTIC AGENT 01/18/2019 TONG CHERY MD Ot Z88. 2 ALLERGY STATUS TO SULFONAMIDES STATUS 01/19/2019 BRITTANI STRICKLAND DOIC B Ot K21.9 GASTRO-ESOPHAGEAL REFLUX DISEASE WITHOUT 01/19/2019 MANISH STRICKLAND DO Ot K80.1 0 CALCULUS OF GALLBLADDER W CHRONIC CHOLEC 01/19/2019 MANISH STRICKLAND DO Ot Z79.8 99 OTHER PRISON (CURRENT) DRUG THERAPY 01/19/2019 MANISH STRICKLAND DO Ot Z82.4 9 FAMILY HX OF ISCHEM HEART DIS AND OTH DI 01/19/2019 MANISH STRICKLAND DO Ot Z88.0 ALLERGY STATUS TO PENICILLIN 01/19/2019 MANISH STRICKLAND DO Ot Z88.1 ALLERGY STATUS TO OTHER ANTIBIOTIC AGENT 01/19/2019 MANISH STRICKLAND DO Ot Z88.2 ALLERGY STATUS TO SULFONAMIDES STATUS 01/25/2019 TONG CHERY MD Ot K80. 20 CALCULUS OF GALLBLADDER W/O CHOLECYSTITI 01/25/2019 TONG CHERY MD Ot R11. 2 NAUSEA WITH VOMITING, UNSPECIFIED Procedures There is no data. Results Test Result Range [id number] - 07/20/16 11:42 RESULTS NEGATIVE FOR ANTIGEN AND TOXIN A/B NR Comprehensive metabolic panel - 11/17/16 09:25 Serum or plasma sodium measurement (moles/volume) 137 mmol/L 135-145 Serum or plasma potassium measurement (moles/volume) 4.0 mmol/L 3.6-5.0 Serum or plasma chloride measurement (moles/volume) 103 mmol/L 98-107 Carbon dioxide 25 mmol/L 21-32 Serum or plasma anion gap determination (moles/volume) 9 mmol/L 5-14 Serum or plasma urea nitrogen measurement (mass/volume ) 14 mg/dL 7-18 Serum or plasma creatinine measurement (mass/volume) 0.98 mg/dL 0.60-1.30 Serum or plasma urea nitrogen/creatinine mass ratio 14 NRG Serum or plasma creatinine measurement w ith calculation of estimated glomerular filtration rate > NRG Serum or plasma glucose measurement (mass/volume) 100 mg/dL 70-105 Serum or plasma calcium measurement (mass/volume) 9.0 mg/dL 8.5-10.1 Serum or plasma total bilirubin measurement (mass/volu me) 0.7 mg/dL 0.1-1.0 Serum or plasma alkaline phosphatase samantha surement (enzymatic activity/volume) 44 U/L 40-136 Serum or plasma aspartate aminotransfera se measurement (enzymatic activity/volume) 18 U/L 5-34 Serum or plasma alanine aminotransferase measurement (enzymatic activity/volume) 21 U/L 0-55 Serum or plasma protein measurement (mass/volume) 6.4 g/dL 6.4-8.2 Serum or plasma albumin measurement (mass/volume) 4.1 g/dL 3.2-4.5 Lipid 1996 panel - 11/17/16 09:25 Serum or plasma triglyceride measurement (mass/volume) 129 mg/dL <150 Serum or plasma cholesterol measurement (mass/volume) 202 mg/dL < 200 Serum or plasma cholesterol in HDL measurement (mass/v olume) 62 mg/dL 40-60 Cholesterol in LDL [mass/volume] in serum or plasma by direct assay 124 mg/dL 1-129 Serum or plasma cholesterol in VLDL measurement (mass/ volume) 26 mg/dL 5-40 THYROID STIMULATING HORMONE - 11/17/16 0 9:25 THYROID STIMULATING HORMONE 2.74 u[iU]/mL 0.35-4.94 Serum or plasma thyroxine (T4) free malia urement (mass/volume) - 11/17/16 09:25 Serum or plasma thyroxine (T4) free measurement (mass/ volume) 1.20 ng/dL 0.70-1.48 Adrenocorticotropic hormone (ACTH) measu rement - 11/17/16 09:25 Adrenocorticotropic hormone (ACTH) measurement 418 pg/mL 5- 27 Prostate specific ag [mass/volume] in se rum or plasma - 11/17/16 09:25 Prostate specific ag [mass/volume] in serum or plasma 0.24 % 0.00-4.00 C DIFFICILE AG + TOXIN A/B. - 07/20/17 1 5:00 RESULTS NEGATIVE FOR ANTIGEN AND TOXIN A/B [facility] Comprehensive metabolic panel - 01/06/19 09:55 Serum or plasma sodium measurement (moles/volume) 133 mmol/L 135-145 Serum or plasma potassium measurement (moles/volume) 3.8 mmol/L 3.6-5.0 Serum or plasma chloride measurement (moles/volume) 102 mmol/L 98-107 Carbon dioxide 25 mmol/L 21-32 Serum or plasma anion gap determination (moles/volume) 6 mmol/L 5-14 Serum or plasma urea nitrogen measurement (mass/volume ) 15 mg/dL 7-18 Serum or plasma creatinine measurement (mass/volume) 0.97 mg/dL 0.60-1.30 Serum or plasma urea nitrogen/creatinine mass ratio 15 NRG Serum or plasma creatinine measurement w ith calculation of estimated glomerular filtration rate > NRG Serum or plasma glucose measurement (mass/volume) 257 mg/dL 70-105 Serum or plasma calcium measurement (mass/volume) 8.3 mg/dL 8.5-10.1 Serum or plasma total bilirubin measurement (mass/volu me) 0.8 mg/dL 0.1-1.0 Serum or plasma alkaline phosphatase samantha surement (enzymatic activity/volume) 46 U/L 40-136 Serum or plasma aspartate aminotransfera se measurement (enzymatic activity/volume) 15 U/L 5-34 Serum or plasma alanine aminotransferase measurement (enzymatic activity/volume) 14 U/L 0-55 Serum or plasma protein measurement (mass/volume) 5.3 g/dL 6.4-8.2 Serum or plasma albumin measurement (mass/volume) 3.6 g/dL 3.2-4.5 CALCIUM CORRECTED 8.6 mg/dL 8.5-10.1 Lipase - 01/06/19 09:55 Lipase 44 U/L 8-78 Methicillin resistant Staphylococcus aur eus (MRSA) screening culture - 01/11/19 08:50 Methicillin resistant Staphylococcus aureus (MRSA) scr eening culture NEG NRG Encounters ACCT No. Visit Date/Time Discharge Status Pt. Type Provider Facility Loc./Unit Complaint [id number] 01/11/2019 08:33:00 14:45:00 DIS Outpatient MANISH STRICKLAND DO [facility] SDC GALLSTONES [id number] 01/10/2019 08:13:00 23:59:59 CLS Outpatient TONG CHERY MD [facility] RAD EPIGASTRIC PAIN,N/V [id number] 01/10/2019 14:31:00 15:19:00 DIS Outpatient MANISH STRICKLAND DO [facility] PREOP LAP AZUCENA [id number] 01/06/2019 07:33:00 11:50:00 DIS Outpatient TONG CHERY MD [facility] ENDO WT LOSS/EPIGASTRIC PAIN [id number] 01/04/2019 05:38:00 11:52:00 DIS Outpatient TONG CHERY MD [facility] PREOP EGD [id number] 07/20/2017 15:40:00 23:59:59 CLS Outpatient TONG CHERY MD [facility] LAB DIARRHEA [id number] 05/14/2017 06:54:00 018 09:10:00 DIS Outpatient TONG CHERY MD [facility] ENDO SCREENING/HX OF POLYPS [id number] 05/07/2017 05:33:00 018 10:02:00 DIS Outpatient TONG CHERY MD [facility] PREOP COLONOSCOPY [id number] 11/17/2016 09:09:00 017 23:59:59 CLS Outpatient HANSA CASTILLO MD [facility] LAB E27.1,E03.9,V70 .0,Z00.8 [id number] 07/20/2016 12:05:00 017 23:59:59 CLS Outpatient HANSA CASTILLO MD [facility] LAB DIARRHEA [id number] 04/27/2015 19:57:00 016 23:00:00 DIS Emergency MCKENNA DANIEL MD [facility] ER [id number] 07/02/2014 21:48:00 015 01:43:00 DIS Emergency JORGE MONROE DO [facility] ER [id number] 02/14/2014 09:09:00 014 23:59:59 CLS Outpatient LAYLA TOBIAS MD [facility] LAB [id number] 07/17/2013 16:07:00 014 23:59:59 CLS Outpatient DALJIT PARNELL [facility] LAB [id number] 12/15/2012 09:34:00 013 23:59:59 CLS Outpatient
--- OUTSIDE RECORDS SUMMARY | 2019-10-19 08:35 | XMS REPORT | Clinical Summary ---
Author Author [facility] Organization [facility] Address Unknown Phone Unavailable Care Team Providers Care Tool Design Drafter Name Role Phone Chris Hensley MD PCP Barak Robbins MD Unavailable Araceli Escalante RN Unavailable Unavailable Vani Muniz PA-C Unavailable Isabella Floyd RN Unavailable Unavailable Source Comments Some departments are not documenting in the electronic medical record. If you d o not see the information that you expected, contact Release of Information in [facility] [employer] Information Management department at [phone] for further assistan ce in locating additional records.[facility] Allergies Comments Active Allergy Reactions Severity Noted Date Pancreatitis Sulfamethoxazole-Trimetho SEE COMMENTS 08/10/2013 prim Penicillins HIVES 08/10/2013 Medications End Date Status Medication Sig Dispensed Refills Start Date Active hydrocortisone (CORTEF) Take 30 mg by 0 20 mg tablet mouth daily. Takes 1 tab po q am and 0.5 tab po q pm Active fludrocortisone Take 0.1 mg 0 (FLORINEF) 0.1 mg tablet by mouth daily. Active levothyroxine (SYNTHROID) Take 125 mcg 0 125 mcg tablet by mouth daily. Active vitamins, multiple cap Take 1 Cap by 0 mouth daily. Active omeprazole DR(+) Take 20 mg by 0 (PRILOSEC) 20 mg capsule mouth daily. Active gabapentin (NEURONTIN) Take 100 mg 0 100 mg capsule by mouth three times daily. 1 CAP. PO TID X 5 DAYS, THEN TAKE 2 CAP PO TID THEREAFTER Active LORazepam (ATIVAN) 0.5 mg Take 0.5 mg 0 tablet by mouth every 8 hours as needed. 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 Last Filed Vital Signs Reading Time Taken Comments Vital Sign 104/63 07/21/2013 11:00 AM CDT Blood Pressure 87 07/21/2013 11:00 AM CDT Pulse 37.3 C (99.2 F) 07/21/2013 11:00 AM CDT Temperature - - Respiratory Rate 97% 07/21/2013 11:00 AM CDT Oxygen Saturation - - Inhaled Oxygen Concentration 87.3 kg (192 lb 7.4 oz) 07/21/2013 11:00 AM CDT Weight 182.9 cm (6') 07/21/2013 11:00 AM CDT Height 26.1 07/21/2013 11:00 AM CDT Body Mass Index Plan of Treatment Health Maintenance Due Date Last Done Comments HIV SCREENING 01/01/1979 DTAP/TDAP VACCINES (1 - 01/01/1982 Tdap) HEPATITIS C SCREENING 01/01/1982 PHYSICAL (COMPREHENSIVE) 01/01/1982 EXAM COLORECTAL CANCER 01/01/2014 SCREENING SHINGLES RECOMBINANT 01/01/2014 VACCINE (1 of 2) INFLUENZA VACCINE 01/11/2020 Results Not on filefrom Last 3 Months Insurance Type Payer Benefit Subscriber ID Effective Phone Address Plan / Dates Group HMO [facility] xxxxxxxxxxxx [id number] Advance Directives Patient [employer] Operator Explanation Type Date Recorded Advance 12/20/2012 12:30 PM Directive/DPOA
[2019-10-19] MEDS ORDERED: ONDANSETRON 4 MG/2 ML (SDV) Z0FRAN IVP ONE (08:45)
[2019-10-19] MEDS ORDERED: LACTATED RINGERS 1,000 ML IV SCH (08:45)
[2019-10-19 08:51] LABS: BASOPHILS % (AUTO) 0 % (0-10); EOSINOPHILS # (AUTO) 0.1 10^3/uL (0.0-0.3); EOSINOPHILS % (AUTO) 2 % (0-10); HEMATOCRIT 46 % (40-54); HEMOGLOBIN 16.9 G/DL (13.3-17.7); LYMPHOCYTES # (AUTO) 3.1 X 10^3 (1.0-4.0); LYMPHOCYTES % (AUTO) 41 % (12-44); MEAN CORPUSCULAR HEMOGLOBIN 34 PG (25-34); MEAN CORPUSCULAR HGB CONC 37 G/DL (32-36); MEAN CORPUSCULAR VOLUME 94 FL (80-99); MEAN PLATELET VOLUME 10.9 FL (7.4-10.4); MONOCYTES # (AUTO) 0.8 X 10^3 (0.0-1.0); MONOCYTES % (AUTO) 11 % (0-12); NEUTROPHILS # (AUTO) 3.4 X 10^3 (1.8-7.8); NEUTROPHILS % (AUTO) 46 % (42-75); PLATELET COUNT 308 10^3/uL (130-400); RED CELL DISTRIBUTION WIDTH 12.8 % (10.0-14.5); WHITE BLOOD COUNT 7.5 10^3/uL (4.3-11.0)
[2019-10-19] MEDS ORDERED: HALOPERIDOL 5 MG/ML (HALDOL) VIAL IV ONE (09:00)
[2019-10-19] MEDS ORDERED: HYDROCORTISONE 100 MG/2 ML (Solu-CORTEF) VIAL IV ONE (09:00)
[2019-10-19 09:01] LABS: ALBUMIN 4.9 GM/DL (3.2-4.5); CHLORIDE 98 MMOL/L (98-107); POTASSIUM 3.4 MMOL/L (3.6-5.0); SODIUM 135 MMOL/L (135-145)
[2019-10-19 09:02] LABS: CALCIUM 10.1 MG/DL (8.5-10.1)
[2019-10-19 09:03] LABS: GLUCOSE 131 MG/DL (70-105); TOTAL PROTEIN 7.9 GM/DL (6.4-8.2)
[2019-10-19 09:04] LABS: CARBON DIOXIDE 21 MMOL/L (21-32)
[2019-10-19 09:07] LABS: ALKALINE PHOSPHATASE 61 U/L (40-136); CREATININE SERUM 1.45 MG/DL (0.60-1.30); GFR ESTIMATED 51
[2019-10-19 09:08] LABS: BUN/CREATININE RATIO 13
[2019-10-19 09:10] LABS: ALANINE AMINOTRANSFERASE 30 U/L (0-55); LIPASE 53 U/L (8-78)
--- NOTE | 2019-10-19 09:22 | NUR ---
AT ENTRANCE WANTING A UPDATE. PT STATES THAT IS FINE. UPDATE GIVEN.
[2019-10-19] MEDS ORDERED: LACTATED RINGERS 1,000 ML IV ONE (09:24)
--- NOTE | 2019-10-19 09:34 | NUR ---
PT STATES HE IS FEELING BETTER.
--- NOTE | 2019-10-19 09:49 | ED Abdominal Pain ---
General Chief Complaint: Abdominal/GI Problems Stated Complaint: NAUSEA Nursing Triage Note: ARRIVED VIA AMB TO ROOM 025 WITH COMPLAINTS OF SEVERE NAUSEA THAT HAS BEEN COMING IN WAVES FOR A WEEK BUT WOKE UP WORSE TODAY. Sepsis Screen: No Definite Risk Source of Information: Patient Exam Limitations: No Limitations History of Present Illness Date Seen by Provider: Oct 19, 2019 Time Seen by Provider: 08:52 Initial Comments Here with report of abdominal pain and nausea and vomiting that has been coming in waves over the last few days and up to a week. States the abdominal pain is cramping. Unsure of any exacerbating or relieving factors. States he took 2 Zofran to Phenergan this morning around 6 or 6:30 but that did not help. States her pain is worse today. Does admit that it feels better after he smokes marijuana and then admits that he does smoke marijuana daily. He has never had anything like this before. Denies fever or chills. Denies cough, shortness of breath or upper respiratory symptoms or contact with COVID-19 patients. 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 Timing/Duration: 1 Week, Getting Worse, Intermittent Severity/Quality: Moderate, Severe, Cramping Location: Generalized Abdomen Radiation: No Radiation Activities at Onset: None Associated Symptoms: No Back Pain, No Chest Pain, No Fever/Chills, No Fatigue; Nausea/Vomiting; No Shortness of Air, No Swelling/Mass in Abdomen, No Weakness Allergies and Home Medications Allergies Coded Allergies: sulfamethoxazole (Verified Allergy, Severe, 01/04/19) Pancreatitis trimethoprim (Verified Allergy, Severe, 01/04/19) Pancreatitis Penicillins (Verified Allergy, Mild, HIVES, 01/04/19) Home Medications Fludrocortisone Acetate 0.1 Mg Tab, 0.1 MG PO DAILY, (Reported) Hydrocortisone 10 Mg Tablet, 30 MG PO DAILY, (Reported) L.acidoph & Paracasei,B.lactis 1 Each Capsule, 1 EACH PO DAILY, (Reported) Lansoprazole 30 Mg Capsule.dr, 30 MG PO DAILY, (Reported) Levofloxacin 500 Mg Tablet, 500 MG PO DAILY, (Reported) Levothyroxine Sodium 125 Mcg Tablet, 125 MCG PO DAILY, (Reported) Ondansetron 8 Mg Tab.rapdis, 8 MG PO Q6H Prescribed by: TONG CHERY on 01/06/19 1109 Psyllium Husk 660 Gm Powder, 660 GM PO DAILY, (Reported) Tramadol HCl 50 Mg Tablet, 50 MG PO Q8H Prescribed by: MANISH STRICKLAND on 01/11/19 1128 Patient Home Medication List Home Medication List Reviewed: Yes Review of Systems Review of Systems Constitutional: see HPI; No chills, No fever EENTM: No Symptoms Reported Respiratory: No Symptoms Reported Cardiovascular: No Symptoms Reported Gastrointestinal: See HPI Genitourinary: Denies Hematuria, Denies Pain Musculoskeletal: no symptoms reported Skin: no symptoms reported All Other Systems Reviewed Negative Unless Noted: Yes Past Ilpiygp-Ewuorf-Rnemsr Hx Past Med/Social Hx: Reviewed Nursing Past Med/Soc Hx Patient Social History Alcohol Use: Occasionally Uses Alcohol Beverage of Choice: Vodka Recreational Drug Use: Yes Drug of Choice: POT Smoking Status: Never a Smoker 2nd Hand Smoke Exposure: No Recent Foreign Travel: No Contact w/Someone Who Travel: No Recent Infectious Disease Expo: No Recent Hopitalizations: No Immunizations Up To Date Date of Influenza Vaccine: Apr 30, 2017 Seasonal Allergies Seasonal Allergies: No Past Medical History Surgeries: Yes (leg fx x2 surgeries) Orthopedic Respiratory: No Cardiac: No Neurological: No Reproductive Disorders: No Sexually Transmitted Disease: No HIV/AIDS: No Genitourinary: No Gastrointestinal: Yes Gastroesophageal Reflux, Chronic Constipation, Polyps, Ulcer, Gall Bladder Disease Musculoskeletal: No Endocrine: Yes (ADDISONS DISEASE) Adrenal Disease, Hypothyroidsim HEENT: Yes (READING GLASSES) Loss of Vision: Denies Hearing Impairment: Denies Cancer: No Psychosocial: No Integumentary: No Blood Disorders: No Adverse Reaction/Blood Tranf: No (N/A) Family Medical History Reviewed Nursing Family Hx No Pertinent Family Hx Physical Exam Vital Signs Vital Signs - First Documented 10/19/19 08:30 Temp 36.4 Pulse 73 Resp 16 B/P (MAP) 129/101 (110) Pulse Ox 100 O2 Delivery Room Air Capillary Refill : Less Than 3 Seconds Height/Weight/BMI Height: 6'0.00" Weight: 200lbs. 0.0oz. 90.114621pt; 23.00 BMI Method:Stated General Appearance: WD/WN, mild distress HEENT: PERRL/EOMI, pharynx normal Neck: full range of motion, supple Respiratory: lungs clear, normal breath sounds Cardiovascular: regular rate, rhythm, no murmur Gastrointestinal: normal bowel sounds, soft, tenderness (mild diffuse) Extremities: non-tender, normal inspection, no pedal edema, no calf tenderness Back: normal inspection, no CVA tenderness Neurologic/Psychiatric: alert, oriented x 3 Skin: normal color, warm/dry Progress/Results/Core Measures Results/Orders Lab Results Laboratory Tests Test 10/19/19 08:35 10/19/19 09:54 Range/Units White Blood Count 7.5 4.3-11.0 10^3/uL Red Blood Count 4.93 4.35-5.85 10^6/uL Hemoglobin 16.9 13.3-17.7 G/DL Hematocrit 46 40-54 % Mean Corpuscular Volume 94 80-99 FL Mean Corpuscular Hemoglobin 34 25-34 PG Mean Corpuscular Hemoglobin Concent 37 H 32-36 G/DL Red Cell Distribution Width 12.8 10.0-14.5 % Platelet Count 308 130-400 10^3/uL Mean Platelet Volume 10.9 H 7.4-10.4 FL Neutrophils (%) (Auto) 46 42-75 % Lymphocytes (%) (Auto) 41 12-44 % Monocytes (%) (Auto) 11 0-12 % Eosinophils (%) (Auto) 2 0-10 % Basophils (%) (Auto) 0 0-10 % Neutrophils # (Auto) 3.4 1.8-7.8 X 10^3 Lymphocytes # (Auto) 3.1 1.0-4.0 X 10^3 Monocytes # (Auto) 0.8 0.0-1.0 X 10^3 Eosinophils # (Auto) 0.1 0.0-0.3 10^3/uL Basophils # (Auto) 0.0 0.0-0.1 10^3/uL Sodium Level 135 135-145 MMOL/L Potassium Level 3.4 L 3.6-5.0 MMOL/L Chloride Level 98 98-107 MMOL/L Carbon Dioxide Level 21 21-32 MMOL/L Anion Gap 16 H 5-14 MMOL/L Blood Urea Nitrogen 19 H 7-18 MG/DL Creatinine 1.45 H 0.60-1.30 MG/DL Estimat Glomerular Filtration Rate 51 BUN/Creatinine Ratio 13 Glucose Level 131 H 70-105 MG/DL Calcium Level 10.1 8.5-10.1 MG/DL Corrected Calcium 8.5-10.1 MG/DL Total Bilirubin 1.0 0.1-1.0 MG/DL Aspartate Amino Transf (AST/SGOT) 33 5-34 U/L Alanine Aminotransferase (ALT/SGPT) 30 0-55 U/L Alkaline Phosphatase 61 40-136 U/L Total Protein 7.9 6.4-8.2 GM/DL Albumin 4.9 H 3.2-4.5 GM/DL Lipase 53 8-78 U/L Urine Color ORANGE Urine Clarity SL CLOUDY Urine pH 7.5 5-9 Urine Specific [place] 1.015 L 1.016-1.022 Urine Protein TRACE H NEGATIVE Urine Glucose (UA) NEGATIVE NEGATIVE Urine Ketones 1+ H NEGATIVE Urine Nitrite NEGATIVE NEGATIVE Urine Bilirubin NEGATIVE NEGATIVE Urine Urobilinogen 0.2 < = 1.0 MG/DL Urine Leukocyte Esterase NEGATIVE NEGATIVE Urine RBC (Auto) NEGATIVE NEGATIVE Urine RBC NONE /HPF Urine WBC RARE /HPF Urine Crystals PRESENT H /LPF Urine Amorphous Sediment FEW ANNETTE PHOSPHATE H /LPF Urine Bacteria NEGATIVE /HPF Urine Casts NONE /LPF Urine Mucus SMALL H /LPF Urine Culture Indicated NO My Orders Orders - MCKENNA DANIEL MD Cbc With Automated Diff (10/19/19 08:35) Comprehensive Metabolic Panel (10/19/19 08:35) Lipase (10/19/19 08:35) Ua Culture If Indicated (10/19/19 08:35) Ed Iv/Invasive Line Start (10/19/19 08:35) Lactated Ringers (Lr 1000 Ml Iv Solution (10/19/19 08:45) Ondansetron Injection (Zofran Injectio (10/19/19 08:45) Hydrocortisone Injection (Solu-Cortef In (10/19/19 09:00) Haloperidol Injection (Haldol Injectio (10/19/19 09:00) Lactated Ringers (Lr 1000 Ml Iv Solution (10/19/19 09:24) Medications Given in ED Current Medications Medications Dose Ordered Sig/Chris Route Start Time Stop Time Status Last Admin Dose Admin Haloperidol Lactate 5 mg ONCE ONCE IV 10/19/19 09:00 10/19/19 09:01 DC 10/19/19 09:10 5 MG Hydrocortisone Sodium Succinate 100 mg ONCE ONCE IV 10/19/19 09:00 10/19/19 09:01 DC 10/19/19 09:08 100 MG Lactated Ringer's 1,000 ml @ 0 mls/hr Q0M ONCE IV 10/19/19 09:24 10/19/19 09:26 DC 10/19/19 09:32 1,000 MLS/HR Ondansetron HCl 8 mg ONCE ONCE IVP 10/19/19 08:45 10/19/19 08:46 DC 10/19/19 08:44 8 MG Vital Signs/I&O 10/19/19 08:30 Temp 36.4 Pulse 73 Resp 16 B/P (MAP) 129/101 (110) Pulse Ox 100 O2 Delivery Room Air Blood Pressure Mean: 110 Progress Progress Note : Progress Note Seen and evaluated. IV, labs, UA, Zofran 8 mg IV and LR 1 L bolus. I did discuss with him regarding hyperemesis secondary to cannabis use and he states that he had recently read about that and was wondering if that might be part of the problem. Haldol 5 mg IV ordered and repeat LR 1 L bolus ordered. 0940: Doing better currently pending UA. I did discuss with him about ceasing marijuana use. Monitor patient. 1027: Overall doing better and feels comfortable going home. I rediscussed cessation of cannabis and options for treatment at home. Discharged home with return precautions. Patient verbalize understanding of instructions and agreement with plan and reports that he is going to quit marijuana. 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 Decision time for Depature: 10:28 Referrals: TONG CHERY MD (PCP/Family) Primary Care Physician Patient Instructions: Acute Abdomen (Belly Pain), Adult (DC), Marijuana Use and Addiction (DC) Add. Discharge Instructions: All discharge instructions reviewed with patient and/or family. Voiced understanding. Drink plenty of fluids and get some rest today. Stop marijuana use. You may use warm showers or Capsaicin cream over your abdomen if you began to have the cramping and nausea and vomiting as you are quitting. Follow-up with your DrMeagan in a few days for recheck. Return for worse pain, persistent vomiting, weakness, rhythm problems or other concerns as needed. Copy Copies To 1: TONG CHERY MD, TIMOTHY D MD Oct 19, 2019 09:49
[2019-10-19 10:01] LABS: BILIRUBIN,URINE NEGATIVE (NEGATIVE); CLARITY,URINE SL CLOUDY; COLOR,URINE ORANGE; GLUCOSE, URINE (UA) NEGATIVE (NEGATIVE); KETONES,URINE 1+ (NEGATIVE); LEUKOCYTE ESTERASE ,URINE NEGATIVE (NEGATIVE); NITRITE,URINE NEGATIVE (NEGATIVE); PH,URINE 7.5 (5-9); PROTEIN,URINE TRACE (NEGATIVE)
[2019-10-19 10:08] LABS: AMORPHOUS SEDIMENT,UR FEW AMOR PHOSPHATE /LPF; BACTERIA,URINE NEGATIVE /HPF; WBC,URINE RARE /HPF
--- NOTE | 2019-10-19 10:23 | NUR ---
IN ROOM TALKING TO THE PT AT THIS TIME.
--- NOTE | 2019-10-19 10:25 | NUR ---
PT'S CONTACTED AND NOTIFIED HE WOULD BE DISCHARGED SOON.
[2019-10-19 10:36] VITALS: BP 141/100
== END 2019-10-19 10:36 | disposition home or self-care (01) ==
LOC: EDUNIT# 08:28 → ER 08:29
DX: F12.288 Cannabis dependence with other cannabis-induced disorder (principal); E27.1 Primary adrenocortical insufficiency; K21.9 Gastro-esophageal reflux disease without esophagitis; E03.9 Hypothyroidism, unspecified; K59.09 Other constipation; Z88.2 Allergy status to sulfonamides; Z88.1 Allergy status to other antibiotic agents; Z88.0 Allergy status to penicillin; Z79.52 Long term (current) use of systemic steroids; Z79.890 Hormone replacement therapy
CPT/HCPCS: 36415; 80053; 81000; 83690; 85025

== ENCOUNTER 2023-03-16 04:31 | Emergency (ER) | payer BC, OTHER ==
[~2023-03-16] VITALS: Ht 157 cm; Wt 81.0 kg
--- NOTE | 2023-03-16 04:39 | ED General ---
General Stated Complaint: POSS FOOD POISONING Source of Information: Patient Exam Limitations: No Limitations (MARIO GOINS MD) History of Present Illness Date Seen by Provider: Mar 16, 2023 Time Seen by Provider: 04:39 Initial Comments Patient is a 58-year-old male who presents to the emergency room with a chief complaint of acute onset nausea, vomiting and diarrhea. He woke up in the night 2 or 3 hours ago with symptoms. No blood or coffee grounds in his vomitus, no blood that he has noticed in his stool. They ate at home yesterday evening, no one else is sick. He denies abdominal pain. He has no runny nose, congestion, cough or sore throat. No sick contacts at home. History of Humberto's disease. He has had previous cholecystectomy. No urinary complaints. On my initial evaluation he is chilling, with rigors. Had 2 Zofran approximately an hour and a half prior to arrival. Timing/Duration: 1-3 Hours Severity: Severe Associated Systoms: Malaise, Nausea/Vomiting, Other (Chills) (MARIO GOINS MD) Allergies and Home Medications Allergies Coded Allergies: sulfamethoxazole (Verified Allergy, Severe, 01/04/19) Pancreatitis trimethoprim (Verified Allergy, Severe, 01/04/19) Pancreatitis Penicillins (Verified Allergy, Mild, HIVES, 01/04/19) Patient Home Medication List Home Medication List Reviewed: Yes (MARIO GOINS MD) Fludrocortisone Acetate (Fludrocortisone Acetate) 0.1 Mg Tab, 0.1 MG PO DAILY, (Reported) Entered as Reported by: KIA CAMPBELL on 05/07/17 1001 Hydrocortisone (Hydrocortisone) 10 Mg Tablet, 30 MG PO DAILY, (Reported) Entered as Reported by: KIA CAMPBELL on 05/07/17 1001 L.acidoph & Paracasei,B.lactis (Probiotic) 1 Each Capsule, 1 EACH PO DAILY, (Reported) Entered as Reported by: AMY VIGIL on 01/04/19 1042 Lansoprazole (Prevacid) 30 Mg Capsule.dr, 30 MG PO DAILY, (Reported) Entered as Reported by: AMY VIGIL on 01/04/19 1037 Levofloxacin (Levaquin) 500 Mg Tablet, 500 MG PO DAILY, (Reported) Entered as Reported by: ASH MACK on 01/11/19 0922 Levothyroxine Sodium (Levothyroxine Sodium) 125 Mcg Tablet, 125 MCG PO DAILY, (Reported) Entered as Reported by: KIA CAMPBELL on 05/07/17 1001 Ondansetron (Ondansetron Odt) 8 Mg Tab.rapdis, 8 MG PO Q6H Prescribed by: TONG CHERY on 01/06/19 1109 Psyllium Husk (Metamucil) 660 Gm Powder, 660 GM PO DAILY, (Reported) Entered as Reported by: AMY VIGIL on 01/04/19 1037 Tramadol HCl (Ultram) 50 Mg Tablet, 50 MG PO Q8H Prescribed by: MANISH STRICKLAND on 01/11/19 1128 Review of Systems Review of Systems Constitutional: see HPI EENTM: no symptoms reported Respiratory: no symptoms reported Cardiovascular: no symptoms reported Gastrointestinal: nausea, vomiting Genitourinary: no symptoms reported Musculoskeletal: no symptoms reported Skin: no symptoms reported Psychiatric/Neurological: No Symptoms Reported (MARIO GOINS MD) Past Tixvnxm-Ctrfjf-Vynmkf Hx Seasonal Allergies Seasonal Allergies: No (MARIO GOINS MD) Past Medical History Surgeries: Yes (leg fx x2 surgeries) Orthopedic Respiratory: No Cardiac: No Neurological: No Reproductive Disorders: No Sexually Transmitted Disease: No HIV/AIDS: No Genitourinary: No Gastrointestinal: Yes Gastroesophageal Reflux, Chronic Constipation, Polyps, Ulcer, Gall Bladder Disease Musculoskeletal: No Endocrine: Yes (ADDISONS DISEASE) Adrenal Disease, Hypothyroidsim HEENT: Yes (READING GLASSES) Loss of Vision: Denies Hearing Impairment: Denies Cancer: No Psychosocial: No Integumentary: No Blood Disorders: No Adverse Reaction/Blood Tranf: No (N/A) (MARIO GOINS MD) Family Medical History No Pertinent Family Hx (MARIO GOINS MD) Physical Exam Vital Signs Vital Signs - First Documented 03/16/23 04:37 Temp 36.8 Pulse 73 Resp 20 B/P (MAP) 111/78 (89) Pulse Ox 98 O2 Delivery Room Air (MCKENNA DANIEL MD) Vital Signs Capillary Refill : (MARIO GOINS MD) Height, Weight, BMI Height: 6'0.00" Weight: 200lbs. 0.0oz. 90.097680su; 23.00 BMI Method:Stated General Appearance: WD/WN, Anxious, Moderate Distress Eyes: Bilateral Eye Normal Inspection, Bilateral Eye PERRL, Bilateral Eye EOMI HEENT: PERRL/EOMI, Other (dry oral mucosa) Neck: Normal Inspection, Supple Respiratory: Lungs Clear, Normal Breath Sounds, No Accessory Muscle Use, No Respiratory Distress Gastrointestinal: Guarding (voluntary) Extremity: Normal Inspection, Normal Range of Motion Neurologic/Psychiatric: Alert, Oriented x3, No Motor/Sensory Deficits, Normal Mood/Affect Skin: Normal Color, Warm/Dry (MARIO GOINS MD) Progress/Results/Core Measures Suspected Sepsis SIRS Temperature: Pulse: Respiratory Rate: Blood Pressure / Mean: (MARIO GOINS MD) Results/Orders Lab Results Laboratory Tests Test 03/16/23 04:45 03/16/23 05:20 Range/Units White Blood Count 16.1 H 4.3-11.0 10^3/uL Red Blood Count 5.29 4.30-5.52 10^6/uL Hemoglobin 18.0 H 13.3-17.7 g/dL Hematocrit 52 40-54 % Mean Corpuscular Volume 98 80-99 fL Mean Corpuscular Hemoglobin 34 25-34 pg Mean Corpuscular Hemoglobin Concent 35 32-36 g/dL Red Cell Distribution Width 12.6 10.0-14.5 % Platelet Count 246 130-400 10^3/uL Mean Platelet Volume 11.3 9.0-12.2 fL Immature Granulocyte % (Auto) 0 % Neutrophils (%) (Auto) 82 H 42-75 % Lymphocytes (%) (Auto) 11 L 12-44 % Monocytes (%) (Auto) 6 0-12 % Eosinophils (%) (Auto) 1 0-10 % Basophils (%) (Auto) 0 0-10 % Neutrophils # (Auto) 13.2 H 1.8-7.8 10^3/uL Lymphocytes # (Auto) 1.7 1.0-4.0 10^3/uL Monocytes # (Auto) 1.0 0.0-1.0 10^3/uL Eosinophils # (Auto) 0.1 0.0-0.3 10^3/uL Basophils # (Auto) 0.0 0.0-0.1 10^3/uL Immature Granulocyte # (Auto) 0.1 0.0-0.1 10^3/uL Neutrophils % (Manual) 85 % Lymphocytes % (Manual) 9 % Monocytes % (Manual) 3 % Eosinophils % (Manual) 2 % Band Neutrophils 1 % Blood Morphology Comment NORMAL Sodium Level 138 135-145 MMOL/L Potassium Level 3.6 3.6-5.0 MMOL/L Chloride Level 107 98-107 MMOL/L Carbon Dioxide Level 18 L 21-32 MMOL/L Anion Gap 13 5-14 MMOL/L Blood Urea Nitrogen 17 7-18 MG/DL Creatinine 0.98 0.60-1.30 MG/DL Estimat Glomerular Filtration Rate 89 BUN/Creatinine Ratio 17 Glucose Level 107 H 70-105 MG/DL Calcium Level 9.3 8.5-10.1 MG/DL Corrected Calcium 9.0 8.5-10.1 MG/DL Total Bilirubin 0.6 0.1-1.0 MG/DL Aspartate Amino Transf (AST/SGOT) 20 5-34 U/L Alanine Aminotransferase (ALT/SGPT) 24 0-55 U/L Alkaline Phosphatase 64 40-136 U/L C-Reactive Protein High Sensitivity 0.15 0.00-0.50 MG/DL Total Protein 7.3 6.4-8.2 GM/DL Albumin 4.4 3.2-4.5 GM/DL SARS-CoV-2 RNA (RT-PCR) Not Detected Not Detecte (MCKENNA DANIEL MD) My Orders Orders - MCKENNA DANIEL MD Droperidol Injection (Ed Only) (Droperid (03/16/23 06:30) (MCKENNA DANIEL MD) Medications Given in ED Current Medications Medications Dose Ordered Sig/Chris Route Start Time Stop Time Status Last Admin Dose Admin Diphenhydramine HCl 25 mg ONCE ONCE IVP 03/16/23 05:00 03/16/23 05:01 DC 03/16/23 05:11 25 MG Droperidol 1.25 mg ONCE ONCE IV 03/16/23 06:30 03/16/23 06:31 DC 03/16/23 06:32 1.25 MG Hydrocortisone Sodium Succinate 100 mg ONCE ONCE IV 03/16/23 05:00 03/16/23 05:01 DC 03/16/23 05:10 100 MG Metoclopramide HCl 10 mg ONCE ONCE IVP 03/16/23 05:15 03/16/23 05:16 DC 03/16/23 05:15 10 MG (MCKENNA DANIEL MD) Vital Signs/I&O 03/16/23 04:37 Temp 36.8 Pulse 73 Resp 20 B/P (MAP) 111/78 (89) Pulse Ox 98 O2 Delivery Room Air (MCKENNA DANIEL MD) Vital Signs/I&O Capillary Refill : (MARIO GOINS MD) Progress Note : Progress Note 0615: Assumed care of the patient from Dr. Goins with essentially normal labs and COVID-negative. He was doing better but just started vomiting again. We will consider droperidol but are pending EKG. 0623: EKG results noted and QT is normal. Droperidol 1.25 mg IV ordered for persistent nausea and vomiting. Monitor patient. Labs reviewed and CBC does show elevated white count with 1 band consistent with the vomiting and diarrhea. Chemistries are grossly normal and COVID is negative. Monitor patient. 0730: Patient is overall doing much better and feels comfortable going home. I will send out prescription for ondansetron. Discharged home with return precautions. Patient and verbalized understanding of instructions and agreement with plan. (MCKENNA DANIEL MD) ECG Initial ECG Impression Date: Mar 16, 2023 Initial ECG Impression Time: 06:18 Initial ECG Rate: 75 Initial ECG Rhythm: Normal Sinus Comment Sinus rhythm with normal axis. No evidence of ST elevation CT. Normal QT and QTc at 371 and 415 respectively noted. Interpreted by me. (MCKENNA DANIEL MD) Departure Impression Primary Impression: Nausea vomiting and diarrhea Disposition: 01 HOME, SELF-CARE Condition: Improved Departure-Patient Inst. Decision time for Depature: 07:31 (MCKENNA DANIEL MD) Referrals: TONG CHERY MD (PCP/Family) Primary Care Physician Patient Instructions: Nausea and Vomiting, Adult (DC), Diarrhea, Adult ED, Severe Abdominal Pain, Adult (DC) Add. Discharge Instructions: Drink plenty of fluids by taking small sips frequently. Clear or light diet for the next 24 hours and then advance as tolerated. Take medications as directed. Follow-up with your doctor in a few days for recheck as needed. Return for worse pain, fever, vomiting, weakness, breathing problems or other concerns as needed. Scripts Ondansetron (Ondansetron Odt) 4 Mg Tab.rapdis 4 MG PO Q6H PRN for NAUSEA/VOMITING, #12 TAB 0 Refills Prov: MCKENNA DANIEL MD 03/16/23 MARIO GOINS MD Mar 16, 2023 04:39 MCKENNA DANIEL MD Mar 16, 2023 06:31
[2023-03-16] MEDS ORDERED: HYDROCORTISONE INJECTION 100 MG/2 ML VIAL IV ONE (05:00)
[2023-03-16] MEDS ORDERED: diphenhydrAMINE INJ 50 MG/ML VIAL IVP ONE (05:00)
[2023-03-16] MEDS ORDERED: PROMETHAZINE INJ 25 MG/ML VIAL IVP ONE (05:00)
[2023-03-16 05:05] LABS: BASOPHILS % (AUTO) 0 % (0-10); EOSINOPHILS # (AUTO) 0.1 10^3/uL (0.0-0.3); EOSINOPHILS % (AUTO) 1 % (0-10); HEMATOCRIT 52 % (40-54); LYMPHOCYTES # (AUTO) 1.7 10^3/uL (1.0-4.0); LYMPHOCYTES % (AUTO) 11 % (12-44); MEAN CORPUSCULAR HEMOGLOBIN 34 pg (25-34); MEAN CORPUSCULAR HGB CONC 35 g/dL (32-36); MEAN CORPUSCULAR VOLUME 98 fL (80-99); MEAN PLATELET VOLUME 11.3 fL (9.0-12.2); MONOCYTES % (AUTO) 6 % (0-12); NEUTROPHILS # (AUTO) 13.2 10^3/uL (1.8-7.8); NEUTROPHILS % (AUTO) 82 % (42-75); PLATELET COUNT 246 10^3/uL (130-400); WHITE BLOOD COUNT 16.1 10^3/uL (4.3-11.0)
[2023-03-16 05:13] LABS: ALBUMIN 4.4 GM/DL (3.2-4.5); POTASSIUM 3.6 MMOL/L (3.6-5.0)
[2023-03-16] MEDS: LACTATED RINGERS 1,000 ML 1,000 ML IV SCH ×2 (05:13→06:32)
[2023-03-16 05:14] LABS: CALCIUM 9.3 MG/DL (8.5-10.1)
[2023-03-16] MEDS ORDERED: METOCLOPRAMIDE INJ 10 MG/2 ML ONE (05:14)
[2023-03-16] MEDS ORDERED: METOCLOPRAMIDE INJ 10 MG/2 ML IVP ONE (05:15)
[2023-03-16 05:16] LABS: TOTAL PROTEIN 7.3 GM/DL (6.4-8.2)
[2023-03-16 05:17] LABS: BILIRUBIN,TOTAL 0.6 MG/DL (0.1-1.0)
[2023-03-16 05:19] LABS: CREATININE SERUM 0.98 MG/DL (0.60-1.30)
[2023-03-16 05:31] LABS: BAND NEUTROPHILS 1 %; EOSINOPHILS % (MANUAL) 2 %; LYMPHOCYTES % (MANUAL) 9 %; MONOCYTES % (MANUAL) 3 %; NEUTROPHILS % (MANUAL) 85 %; RBC MORPH NORMAL
[2023-03-16] MEDS ORDERED: LACTATED RINGERS 1,000 ML 1,000 ML IV SCH (06:30)
[2023-03-16] MEDS ORDERED: DroPERidol INJECTION 5 MG/2 ML (ED ONLY!) IV ONE (06:30)
[2023-03-16] MEDS ORDERED: ONDA4TAB11 PO (07:32)
[2023-03-16 07:51] VITALS: BP 115/81
== END 2023-03-16 07:51 | disposition home or self-care (01) ==
LOC: EDUNIT# 04:31 → ER 04:33
DX: R11.2 Nausea with vomiting, unspecified (principal); R19.7 Diarrhea, unspecified; D72.829 Elevated white blood cell count, unspecified
CPT/HCPCS: 36415; 80053; 85007; 85027; 86141; 87636; 93005